=== PATIENT | male | born 1985 | race American Indian/Alaskan Native ===

== ENCOUNTER 2016-09-23 09:20 | Emergency (ER) | payer MEDICAID ==
[2016-09-23 09:51] LABS: Basophils % (Auto) 0.6 % (0.0-1.8); Eosinophils % (Auto) 1.7 % (0.0-4.3); Hematocrit 41.7 % (35.5-45.6); Hemoglobin 14.3 gm/dl (11.8-15.2); Mean Corpuscular HGB Conc 34 % (32-34); Mean Corpuscular Hemoglobin 31 pg (28-32); Mean Corpuscular Volume 89 fl (84-94); Platelet Count 303 K/mm3 (140-440); Red Blood Count 4.66 M/mm3 (3.65-5.03); Red Cell Distribution Width 12.7 % (13.2-15.2); White Blood Count 5.2 K/mm3 (4.5-11.0)
[2016-09-23 10:01] LABS: Anion Gap 18 mmol/L; BUN/Creatinine Ratio 6.25; Blood Urea Nitrogen 5 mg/dL (9-20); Calcium 9.3 mg/dL (8.4-10.2); Carbon Dioxide 22 mmol/L (22-30); Chloride 103.1 mmol/L (98-107); Glucose 97 mg/dL (75-100); Potassium 3.8 mmol/L (3.6-5.0); Sodium 139 mmol/L (137-145)
[2016-09-23] MEDS ORDERED: PEPCID PO ONE (11:20)
[2016-09-23] MEDS ORDERED: MOTRIN PO ONE (11:20)
--- NOTE | 2016-09-23 11:45 | Emergency Department Report ---
ED Headache HPI - General Chief Complaint: Pain General Stated Complaint: FEELING SICK Time Seen by Provider: 09/23/16 11:07 - History of Present Illness Initial Comments: 31-year-old male past medical history schizophrenia, smoker, substance abuse presents with complaint of 10 years of lower back pain and 10 years of headache. Patient is from [place] [facility]. States that he has mild headache. On exam patient is calm awake alert and oriented 3 not in acute distress. Denies any homicidal or suicidal ideation or any hallucinations at this time. States that he has mild left-sided headache. Denies any photo or phonophobia denies any fever or chills. States he has not been taking any medicines for the headache. Denies any recent trauma to head or lower back. Denies any recent falls. Denies any paresthesias no saddle paresthesias bladder or bowel incontinence reported. Patient is fully ambulatory and able to walk inside examination room without any difficulty during my exam. Denies any earache sinus congestion or sore throat. Allergies/Adverse Reactions: Allergies No Known Allergies Allergy (Unverified 09/23/16 09:24) Home Medications: Ambulatory Orders Fluticasone [Flonase] 1 spray NS QDAY #1 bottle 09/23/16 Loratadine [Claritin] 10 mg PO DAILY PRN #30 tablet 09/23/16 Naproxen [Naprosyn TAB] 500 mg PO BID PRN #25 tablet 09/23/16 ED Review of Systems ROS: Stated complaint: FEELING SICK Other details as noted in HPI Constitutional: denies: chills, fever Eyes: denies: eye pain, eye discharge, vision change ENT: denies: ear pain, throat pain Respiratory: denies: cough, shortness of breath, wheezing Cardiovascular: denies: chest pain, palpitations Endocrine: no symptoms reported Gastrointestinal: denies: abdominal pain, nausea, diarrhea Genitourinary: denies: urgency, dysuria Musculoskeletal: back pain (states he has had lower back pain for 10 years). denies: joint swelling, arthralgia Skin: denies: rash, lesions Neurological: headache (states he has had headache for 10 years). denies: weakness, paresthesias Psychiatric: denies: anxiety, depression Hematological/Lymphatic: denies: easy bleeding, easy bruising ED Past Medical Hx - Past Medical History Previous Medical History?: Yes Hx Psychiatric Treatment: Yes (Amandaphrenia) - Surgical History Past Surgical History?: No - Social History Smoking Status: Current Every Day Smoker Substance Use Type: Alcohol - Medications Home Medications: Home Medications Medication Instructions Recorded Confirmed Last Taken Type Fluticasone [Flonase] 1 spray NS QDAY #1 bottle 09/23/16 Unknown Rx Loratadine [Claritin] 10 mg PO DAILY PRN #30 tablet 09/23/16 Unknown Rx Naproxen [Naprosyn TAB] 500 mg PO BID PRN #25 tablet 09/23/16 Unknown Rx ED Physical Exam - General Limitations: No Limitations General appearance: alert, in no apparent distress - Head Head exam: Present: atraumatic, normocephalic - Eye Eye exam: Present: normal appearance, PERRL, EOMI - ENT ENT exam: Present: mucous membranes moist - Neck Neck exam: Present: normal inspection, full ROM (neck flexion and extension fully intact) - Respiratory Respiratory exam: Present: normal lung sounds bilaterally. Absent: respiratory distress - Cardiovascular Cardiovascular Exam: Present: regular rate, normal rhythm. Absent: systolic murmur, diastolic murmur, rubs, gallop - GI/Abdominal GI/Abdominal exam: Present: soft, normal bowel sounds - Rectal Rectal exam: Present: deferred - Extremities Exam Extremities exam: Present: normal inspection, full ROM (range of motion of arms and legs fully intact strength 5 out of 5 all extremities distal deep tendon reflexes are intact) - Back Exam Back exam: Present: normal inspection, full ROM - Neurological Exam Neurological exam: Present: alert, oriented X3, CN II-XII intact, normal gait - Expanded Neurological Exam Expanded Patient oriented to: Present: person, place, time Cranial nerves: EOM's Intact: Normal, Facial Sensation: Normal Cerebellar function: Finger to Nose: Normal, Heel to Carter: Normal, Romberg: Normal Sensory exam: Upper Extremity Light Touch: Normal, Upper Extremity Pin Prick: Normal, Lower Extremity Light Touch: Normal, Lower Extremity Pin Prick: Normal Motor strength exam: RUE: 5, LUE: 5, RLE: 5, LLE: 5 DTR: bicep (R): 3+, bicep (L): 3+, tricep (R): 3+, tricep (L): 3+, knee (R): 3+ , knee (L): 3+, ankle (R): 3+, ankle (L): 3+ Best Eye Response ([place]): (4) open spontaneously Best Motor Response ([place]): (6) obeys commands Best Verbal Response (Deann): (5) oriented Deann Total: 15 - Psychiatric Psychiatric exam: Present: normal affect, normal mood - Skin Skin exam: Present: warm, dry, intact, normal color. Absent: rash ED Course Vital Signs 09/23/16 09/23/16 09:24 11:57 Temperature 98 F 98.5 F Pulse Rate 90 66 Respiratory 16 18 Rate Blood Pressure 124/80 [Right] O2 Sat by Pulse 100 99 Oximetry ED Medical Decision Making - Lab Data Result diagrams: 09/23/16 09:31 09/23/16 09:31 - Medical Decision Making a/p: chronic headache, chronic lower back pain 1- labs within normal limits, head CT shows no acute intracranial process. Some indication of sinus opacification, I will refer patient to ENT 2- patient experienced significant relief of headache with Tylenol and Motrin. States headache is minimal. On clinical exam has no cranial nerve deficits awake alert and oriented 3 fully lucid, ambulatory. Strength 5 at 5 all extremities bilaterally. Deep tendon reflexes are intact bilaterally. No overt signs of clinical neurological deficits on exam 3- as patient has complaints that are chronic and have been ongoing for 10 years and states that he has not had outpatient follow-up I referred patient to primary care, outpatient neurology for chronic headache and ENT for sinus opacification. I informed patient of findings. I encouraged him to follow up as an outpatient Critical care attestation.: If time is entered above; I have spent that time in minutes in the direct care of this critically ill patient, excluding procedure time. ED Disposition Clinical Impression: Chronic headache Qualifiers: Headache type: tension-type Intractability: not intractable Qualified Code(s): G44.229 - Chronic tension-type headache, not intractable Chronic low back pain Qualifiers: Back pain laterality: bilateral Sciatica presence: without sciatica Qualified Code(s): M54.5 - Low back pain Disposition: DC-01 TO HOME OR SELFCARE Is pt being admited?: No Does the pt Need Aspirin: No Condition: Stable Instructions: Tension Headache (ED), Chronic Back Pain (ED) Prescriptions: Fluticasone [Flonase] 1 spray NS QDAY #1 bottle Loratadine [Claritin] 10 mg PO DAILY PRN #30 tablet PRN Reason: Congestion Naproxen [Naprosyn TAB] 500 mg PO BID PRN #25 tablet PRN Reason: Pain Referrals: [facility] [Outside] - 3-5 Days [facility] [Outside] - 3-5 Days SULEMA HERNANDEZ MD [Staff Physician] - 3-5 Days ENVILLE VITAL MD [Staff Physician] - 3-5 Days [facility]Provider Group[facility] - 3-5 Days ENT [facility] [Provider Group] - 3-5 Days BLANCA CABELLO MD [Staff Physician] - 3-5 Days Forms: Work/School Release Form(ED) Time of Disposition: 12:52
[2016-09-23] MEDS ORDERED: TYLENOL PO ONE (11:53)
--- NOTE | 2016-09-23 12:52 | Cat Scan Report ---
CT scan of head without contrast: History: Worsening headache. Findings: Ventricles are normal in size and midline in location. No evidence of acute ischemia, hemorrhage or mass. No extra-axial fluid collection. Normal brainstem and cerebellum. There is opacification noted of the right and left maxillary sinus. There is a retention cyst measuring 2 cm in diameter noted in the right maxillary sinus. Impression: No acute intracranial abnormality. Sinus disease.
[2016-09-23 13:08] VITALS: BP 119/77
== END 2016-09-23 13:08 | disposition home or self-care (01) ==
LOC: ED 09:20
DX: G89.29 Other chronic pain (principal); M54.5 Low back pain; R51 Headache; F17.210 Nicotine dependence, cigarettes, uncomplicated; F20.9 Schizophrenia, unspecified
CPT/HCPCS: 36415; 70450; 80048; 82550; 85025; 99284

== ENCOUNTER 2016-11-17 04:27 | Emergency (ER) | payer MEDICARE ==
[2016-11-17 04:43] VITALS: BP 106/74
[2016-11-17 05:27] LABS: Basophils % (Auto) 0.8 % (0.0-1.8); Eosinophils % (Auto) 1.6 % (0.0-4.3); Hematocrit 39.7 % (35.5-45.6); Hemoglobin 13.7 gm/dl (11.8-15.2); Mean Corpuscular HGB Conc 35 % (32-34); Mean Corpuscular Hemoglobin 32 pg (28-32); Mean Corpuscular Volume 92 fl (84-94); Platelet Count 293 K/mm3 (140-440); Red Blood Count 4.34 M/mm3 (3.65-5.03); Red Cell Distribution Width 12.5 % (13.2-15.2); White Blood Count 9.4 K/mm3 (4.5-11.0)
[2016-11-17 05:46] LABS: Anion Gap 18 mmol/L; BUN/Creatinine Ratio 14.44; Blood Urea Nitrogen 13 mg/dL (9-20); Calcium 8.8 mg/dL (8.4-10.2); Carbon Dioxide 24 mmol/L (22-30); Chloride 101.5 mmol/L (98-107); Glucose 86 mg/dL (75-100); Potassium 3.5 mmol/L (3.6-5.0); Sodium 140 mmol/L (137-145)
[2016-11-17 06:40] LABS: Urine Drugs of Abuse Note Disclamer
[2016-11-17 06:52] LABS: Bilirubin,Urine NEG (Negative); Blood,Urine NEG (Negative); Ketones,Urine NEG (Negative); Leukocyte Esterase,Urine NEG (Negative); Mucus,Urine FEW /HPF; Nitrite,Urine NEG (Negative); Protein,Urine <15 mg/dL mg/dL (Negative); Urobilinogen,Urine < 2.0 mg/dL (<2.0); WBC,Urine < 1.0 /HPF (0.0-6.0)
--- NOTE | 2016-11-17 08:23 | Emergency Department Report ---
ED Medical Clearance [facility] - General Chief complaint: Psych Stated complaint: IMELDA SHAW Time Seen by Provider: 11/17/16 08:21 Source: patient Mode of arrival: Ambulatory - History of Present Illness Initial comments: Patient states he just "wants to get well". He states he has a history of schizophrenia. He placed B compliant with his medicines but does not know the name. He went to [facility] this a.[facility] I am told by the [facility] counselor that he has been cleared for a voluntary admission pending medical clearance. Furthermore he does not need a psychiatric evaluation here. Patient states that he does hear voices that tell him he has done things wrong. However he is had no command hallucinations. He has no intent to harm himself or others. He does have a problem with substance abuse. He is not terribly interested in providing me any detailed history. MD Complaint: medical clearance request -: year(s) Alledged Intoxication: No Compliant with Home Medications: Yes Traumatic Symptoms: denies traumatic injury Treatments Prior to Arrival: none Home medications: Previous Rx's Medication Instructions Recorded Last Taken Type Fluticasone [Flonase] 1 spray NS QDAY #1 bottle 09/23/16 Unknown Rx Loratadine [Claritin] 10 mg PO DAILY PRN #30 tablet 09/23/16 Unknown Rx Naproxen [Naprosyn TAB] 500 mg PO BID PRN #25 tablet 09/23/16 Unknown Rx Allergies/Adverse reactions: Allergies Allergy/AdvReac Type Severity Reaction Status Date / Time No Known Allergies Allergy Unverified 09/23/16 09:24 ED Review of Systems ROS: Stated complaint: EVAL Other details as noted in HPI Constitutional: denies: chills, fever Eyes: denies: eye pain, eye discharge, vision change ENT: denies: ear pain, throat pain Respiratory: denies: cough, shortness of breath, wheezing Cardiovascular: denies: chest pain, palpitations Endocrine: no symptoms reported Gastrointestinal: denies: abdominal pain, nausea, diarrhea Genitourinary: denies: urgency, dysuria Musculoskeletal: denies: back pain, joint swelling, arthralgia Skin: denies: rash, lesions Neurological: denies: headache, weakness, paresthesias Psychiatric: auditory hallucinations. denies: anxiety, depression, visual hallucinations, homicidal thoughts, suicidal thoughts Hematological/Lymphatic: denies: easy bleeding, easy bruising ED Past Medical Hx - Past Medical History Previous Medical History?: Yes Hx Psychiatric Treatment: Yes (Schzophrenia) - Surgical History Past Surgical History?: No - Social History Smoking Status: Current Every Day Smoker Substance Use Type: Alcohol, Heroin, Marijuana, Other - Medications Home Medications: Home Medications Medication Instructions Recorded Confirmed Last Taken Type Fluticasone [Flonase] 1 spray NS QDAY #1 bottle 09/23/16 Unknown Rx Loratadine [Claritin] 10 mg PO DAILY PRN #30 tablet 09/23/16 Unknown Rx Naproxen [Naprosyn TAB] 500 mg PO BID PRN #25 tablet 09/23/16 Unknown Rx ED Physical Exam - General Limitations: No Limitations General appearance: alert, in no apparent distress - Head Head exam: Present: atraumatic, normocephalic - Eye Eye exam: Present: normal appearance - ENT ENT exam: Present: normal exam, mucous membranes moist - Neck Neck exam: Present: normal inspection - Respiratory Respiratory exam: Present: normal lung sounds bilaterally. Absent: respiratory distress - Cardiovascular Cardiovascular Exam: Present: regular rate, normal rhythm. Absent: systolic murmur, diastolic murmur, rubs, gallop - GI/Abdominal GI/Abdominal exam: Present: soft, normal bowel sounds. Absent: distended, tenderness, guarding, rebound, rigid - Rectal Rectal exam: Present: deferred - Extremities Exam Extremities exam: Present: normal inspection - Back Exam Back exam: Present: normal inspection - Neurological Exam Neurological exam: Present: alert, oriented X3, CN II-XII intact. Absent: motor sensory deficit - Psychiatric Psychiatric exam: Present: normal affect, normal mood - Skin Skin exam: Present: warm, dry, intact, normal color. Absent: rash ED Course Vital Signs 11/17/16 04:38 Temperature 97.4 F L Pulse Rate 81 Respiratory 18 Rate Blood Pressure 106/74 O2 Sat by Pulse 99 Oximetry - Reevaluation(s) Reevaluation #1: 11/17/16 08:40 Mental Health state send back to [facility]. ED Medical Decision Making - Lab Data Result diagrams: 11/17/16 04:52 11/17/16 04:52 Laboratory Results - last 24 hr 11/17/16 11/17/16 11/17/16 04:52 04:52 04:52 WBC 9.4 RBC 4.34 Hgb 13.7 Hct 39.7 MCV 92 MCH 32 MCHC 35 H RDW 12.5 L Plt Count 293 Lymph % (Auto) 42.9 H [place] % (Auto) 6.6 Eos % (Auto) 1.6 Baso % (Auto) 0.8 Lymph # 4.0 Canadian # 0.6 Eos # 0.1 Baso # 0.1 Seg Neutrophils % 48.1 Seg Neutrophils # 4.5 Sodium 140 Potassium 3.5 L Chloride 101.5 Carbon Dioxide 24 Anion Gap 18 BUN 13 Creatinine 0.9 Estimated GFR > 60 BUN/Creatinine Ratio 14.44 Glucose 86 Calcium 8.8 Urine Color Urine Turbidity Urine pH Ur Specific [place] Urine Protein Urine Glucose (UA) Urine Ketones Urine Blood Urine Nitrite Urine Bilirubin Urine Urobilinogen Ur Leukocyte Esterase Urine WBC (Auto) Urine RBC (Auto) Urine Mucus Urine Opiates Screen Urine Methadone Screen Ur Barbiturates Screen Ur Phencyclidine Scrn Ur Amphetamines Screen U Benzodiazepines Scrn Urine Cocaine Screen U Marijuana (THC) Screen Drugs of Abuse Note Plasma/Serum Alcohol < 0.01 11/17/16 11/17/16 06:31 06:31 WBC RBC Hgb Hct MCV MCH MCHC RDW Plt Count Lymph % (Auto) Canadian % (Auto) Eos % (Auto) Baso % (Auto) Lymph # [place] # Eos # Baso # Seg Neutrophils % Seg Neutrophils # Sodium Potassium Chloride Carbon Dioxide Anion Gap BUN Creatinine Estimated GFR BUN/Creatinine Ratio Glucose Calcium Urine Color Straw Urine Turbidity Clear Urine pH 6.0 Ur Specific [place] 1.006 Urine Protein <15 mg/dl Urine Glucose (UA) Neg Urine Ketones Neg Urine Blood Neg Urine Nitrite Neg Urine Bilirubin Neg Urine Urobilinogen < 2.0 Ur Leukocyte Esterase Neg Urine WBC (Auto) < 1.0 Urine RBC (Auto) 2.0 Urine Mucus Few Urine Opiates Screen Presumptive negative Urine Methadone Screen Presumptive negative Ur Barbiturates Screen Presumptive negative Ur Phencyclidine Scrn Presumptive negative Ur Amphetamines Screen Presumptive negative U Benzodiazepines Scrn Presumptive negative Urine Cocaine Screen Presumptive negative U Marijuana (THC) Screen Presumptive positive Drugs of Abuse Note Disclamer Plasma/Serum Alcohol ED Disposition Clinical Impression: Medical clearance for psychiatric admission Schizophrenia Qualifiers: Schizophrenia type: unspecified Qualified Code(s): F20.9 - Schizophrenia, unspecified Disposition: DC-01 TO HOME OR SELFCARE Is pt being admited?: No Does the pt Need Aspirin: No Condition: Stable Instructions: Schizophrenia (ED) Additional Instructions: Return any acute change or problem. There are medically clear for voluntary admission to [facility]. Referrals: PRIMARY CARE,MD [Primary Care Provider] - 3-5 Days Time of Disposition: 08:44
== END 2016-11-17 09:58 | disposition home or self-care (01) ==
LOC: ED 04:27
DX: F20.9 Schizophrenia, unspecified (principal); F17.200 Nicotine dependence, unspecified, uncomplicated; F12.10 Cannabis abuse, uncomplicated
CPT/HCPCS: 36415; 80048; 80307; 81001; 85025; 99283; G0480; 80320

== ENCOUNTER 2018-12-29 11:42 | Emergency (ER) | payer MEDICARE ==
[2018-12-29 12:34] LABS: Bilirubin,Urine NEG (Negative); Blood,Urine NEG (Negative); Color,Urine Yellow (Yellow); Mucus,Urine FEW /HPF; Urobilinogen,Urine < 2.0 mg/dL (<2.0)
[2018-12-29 12:41] LABS: Basophils # (Auto) 0.1 K/mm3 (0.0-0.1); Basophils % (Auto) 1.1 % (0.0-1.8); Eosinophils # (Auto) 0.2 K/mm3 (0.0-0.4); Hematocrit 40.7 % (35.5-45.6); Hemoglobin 13.8 gm/dl (11.8-15.2); Lymphocytes # (Auto) 2.9 K/mm3 (1.2-5.4); Lymphocytes % (Auto) 30.5 % (13.4-35.0); Mean Corpuscular HGB Conc 34 % (32-34); Mean Corpuscular Volume 89 fl (84-94); Monocytes # (Auto) 0.5 K/mm3 (0.0-0.8); Monocytes % (Auto) 5.7 % (0.0-7.3); Platelet Count 348 K/mm3 (140-440); Red Blood Count 4.58 M/mm3 (3.65-5.03); Red Cell Distribution Width 13.5 % (13.2-15.2)
[2018-12-29 12:47] LABS: Amphetamine Screen,Urine PRESUMPTIVE NEGATIVE; Benzodiazepines Screen,Urine PRESUMPTIVE NEGATIVE; Cocaine Screen,Urine PRESUMPTIVE NEGATIVE; Methadone Screen,Urine PRESUMPTIVE NEGATIVE; Opiate Screen,Urine PRESUMPTIVE NEGATIVE
--- NOTE | 2018-12-29 12:48 | Emergency Department Report ---
ED Medical Clearance HPI - General Chief complaint: Psych Stated complaint: IMELDA SHAW Time Seen by Provider: 12/29/18 12:10 Source: patient, EMS Mode of arrival: Ambulatory - History of Present Illness Initial comments: 33-year-old male with history of schizophrenia presents to ED for medical clearance. Patient went to [facility] for mental health treatment. Patient reported at 4 AM, he took approximately 8 of his psych medications and a suicide attempt, patient is unsure which pills he took. He reports that he vomited afterward, and noticed that some of the pills came up. Patient sent to the ED from [facility] for medical clearance. Patient reports auditory hallucinations that are telling him things such as he will never make any money. Patient also reports homicidal ideations, however has no specific person in mind. Patient has no complaints at this time. He is currently listening to music on his cell phone. He is requesting something to eat. MD Complaint: medical clearance request -: hour(s) (8) Reason for Medical Clearance: other (reported overdose) Associated Symptoms: nausea/vomiting. denies: chest pain, shortness of breath, palpitations, headaches Home medications: Previous Rx's Medication Instructions Recorded Last Taken Type Fluticasone [Flonase] 1 spray NS QDAY #1 bottle 09/23/16 Unknown Rx Loratadine [Claritin] 10 mg PO DAILY PRN #30 tablet 09/23/16 Unknown Rx Naproxen [Naprosyn TAB] 500 mg PO BID PRN #25 tablet 09/23/16 Unknown Rx Allergies/Adverse reactions: Allergies Allergy/AdvReac Type Severity Reaction Status Date / Time No Known Allergies Allergy Unverified 09/23/16 09:24 ED Review of Systems ROS: Stated complaint: IMELDA EVAL Other details as noted in HPI Comment: All other systems reviewed and negative Gastrointestinal: nausea, vomiting. denies: abdominal pain Neurological: denies: headache Psychiatric: auditory hallucinations, homicidal thoughts, suicidal thoughts ED Past Medical Hx - Past Medical History Hx Psychiatric Treatment: Yes (Schzophrenia) - Social History Smoking Status: Current Every Day Smoker Substance Use Type: Alcohol, Marijuana - Medications Home Medications: Home Medications Medication Instructions Recorded Confirmed Last Taken Type Fluticasone [Flonase] 1 spray NS QDAY #1 bottle 09/23/16 Unknown Rx Loratadine [Claritin] 10 mg PO DAILY PRN #30 tablet 09/23/16 Unknown Rx Naproxen [Naprosyn TAB] 500 mg PO BID PRN #25 tablet 09/23/16 Unknown Rx ED Physical Exam - General Limitations: No Limitations General appearance: alert, in no apparent distress - Head Head exam: Present: atraumatic, normocephalic - Eye Eye exam: Present: normal appearance, PERRL, EOMI - ENT ENT exam: Present: mucous membranes moist - Neck Neck exam: Present: normal inspection - Respiratory Respiratory exam: Present: normal lung sounds bilaterally. Absent: respiratory distress - Cardiovascular Cardiovascular Exam: Present: regular rate, normal rhythm - GI/Abdominal GI/Abdominal exam: Present: soft. Absent: distended, tenderness - Extremities Exam Extremities exam: Present: normal inspection, full ROM - Neurological Exam Neurological exam: Present: alert, oriented X3, CN II-XII intact. Absent: motor sensory deficit - Psychiatric Psychiatric exam: Present: normal affect, normal mood - Skin Skin exam: Present: warm, dry, intact, normal color ED Course Vital Signs 12/29/18 12:01 Temperature 97.8 F Pulse Rate 82 Respiratory 18 Rate Blood Pressure 110/66 O2 Sat by Pulse 98 Oximetry ED Medical Decision Making - Lab Data Result diagrams: 12/29/18 12:27 12/29/18 12:27 - EKG Data -: EKG Interpreted by Ri EKG shows normal: sinus rhythm, axis, intervals, QRS complexes, ST-T waves Rate: normal - EKG Data Interpretation: no acute changes - Medical Decision Making 33-year-old male with reported ingestion at 4 AM and a suicide attempt. Patient unable to state the names of the medications that he took. Patient reports after taking them he did vomit up a few of the pills. This was 9 hours ago. Patient A&O 3, no neuro deficits, vital signs are normal, EKG is normal, labs are normal. At this point patient is medically clear. Will discharge back to [place] facility. ED Disposition Clinical Impression: Medical clearance for psychiatric admission Disposition: - TO HOME OR SELFCARE Is pt being admited?: No Condition: Stable Instructions: Medical Clearance for Psychiatric Care (ED) Referrals: [facility] [Outside] - 3-[address] [facility] [Provider Group] - 3-5 Days Time of Disposition: 13:08
[2018-12-29 12:52] LABS: BUN/Creatinine Ratio 10; Blood Urea Nitrogen 9 mg/dL (9-20); Calcium 9.2 mg/dL (8.4-10.2); Hemolysis Index 3
[2018-12-29 12:54] LABS: Alanine Aminotransferase 23 units/L (7-56); Albumin 4.4 g/dL (3.9-5)
[2018-12-29 12:56] LABS: Bilirubin,Direct < 0.2 mg/dL (0-0.2)
[2018-12-29 12:59] LABS: Cannabinoid Screen,Urine PRESUMPTIVE POSITIVE
[2018-12-29 13:29] VITALS: BP 112/76
== END 2018-12-29 13:32 | disposition home or self-care (01) ==
LOC: ED 11:42
DX: F20.9 Schizophrenia, unspecified (principal); R11.2 Nausea with vomiting, unspecified; F12.10 Cannabis abuse, uncomplicated; F17.200 Nicotine dependence, unspecified, uncomplicated; Z79.899 Other long term (current) drug therapy
CPT/HCPCS: 36415; 80048; 80076; 80307; 80320; 81001; 85025; 93005; 93010; 99285; G0480

== ENCOUNTER 2019-06-15 21:07 | Emergency (ER) | payer MEDICARE ==
[2019-06-15 22:03] LABS: Basophils # (Auto) 0.1 K/mm3 (0.0-0.1); Basophils % (Auto) 1.2 % (0.0-1.8); Eosinophils # (Auto) 0.1 K/mm3 (0.0-0.4); Eosinophils % (Auto) 1.6 % (0.0-4.3); Hematocrit 40.5 % (35.5-45.6); Hemoglobin 13.8 gm/dl (11.8-15.2); Lymphocytes # (Auto) 2.5 K/mm3 (1.2-5.4); Lymphocytes % (Auto) 34.6 % (13.4-35.0); Mean Corpuscular HGB Conc 34 % (32-34); Mean Corpuscular Volume 90 fl (84-94); Monocytes # (Auto) 0.8 K/mm3 (0.0-0.8); Monocytes % (Auto) 10.7 % (0.0-7.3); Platelet Count 418 K/mm3 (140-440); Red Cell Distribution Width 13.2 % (13.2-15.2)
[2019-06-15 22:12] LABS: BUN/Creatinine Ratio 11; Blood Urea Nitrogen 11 mg/dL (9-20); Calcium 9.2 mg/dL (8.4-10.2); Hemolysis Index 9
--- NOTE | 2019-06-15 22:18 | Emergency Department Report ---
ED Psych HPI - General Chief Complaint: Psych Stated Complaint: SUICIDAL Time Seen by Provider: 06/15/19 21:28 Source: patient, EMS Mode of arrival: Ambulatory Limitations: No Limitations - History of Present Illness Initial Comments: 34-year-old male with a past medical history of schizophrenia and drug abuse presents to the hospital complaining of psychosis, suicidal, homicidal ideation for at least 1 month. Patient states the voices are telling him to kill himself. Denies visual hallucinations symptoms worsening and patient admits to recent marijuana and ecstasy use 30 minutes prior to arrival. Patient states he is supposed to receive invega shots twice a month and has not had any shots in at least 1 month because he missed his appointments with the [facility]. Patient denies any physical complaints. History of suicide attempt via overdose and wrist cutting in the past. No plan reported today - Related Data Home Medications Medication Instructions Recorded Confirmed Last Taken Paliperidone Palmitate [Invega 156 mg IM QMONTH 06/15/19 06/15/19 Unknown Sustenna] Previous Rx's Medication Instructions Recorded Last Taken Type Fluticasone [Flonase] 1 spray NS QDAY #1 bottle 09/23/16 Unknown Rx Loratadine (Nf) [Claritin] 10 mg PO DAILY PRN #30 tablet 09/23/16 Unknown Rx Allergies Allergy/AdvReac Type Severity Reaction Status Date / Time No Known Allergies Allergy Unverified 09/23/16 09:24 ED Review of Systems ROS: Stated complaint: SUICIDAL Other details as noted in HPI Comment: All other systems reviewed and negative ED Past Medical Hx - Past Medical History Previous Medical History?: Yes Hx Psychiatric Treatment: Yes (Schizophrenia) - Surgical History Past Surgical History?: Yes Additional Surgical History: Ear surgery as a child - Social History Smoking Status: Current Every Day Smoker Substance Use Type: Marijuana, Other - Medications Home Medications: Home Medications Medication Instructions Recorded Confirmed Last Taken Type Fluticasone [Flonase] 1 spray NS QDAY #1 bottle 09/23/16 06/15/19 Unknown Rx Loratadine (Nf) [Claritin] 10 mg PO DAILY PRN #30 tablet 09/23/16 06/15/19 Unknown Rx Paliperidone Palmitate [Invega 156 mg IM QMONTH 06/15/19 06/15/19 Unknown History Sustenna] ED Physical Exam - General Limitations: No Limitations - Other Other exam information: General: No acute distress Head: Atraumatic Eyes: normal appearance ENT: Moist mucous membranes Neck: Normal appearance, no midline tenderness Chest: Clear to auscultation bilaterally CV: Regular rate and rhythm Abdomen: Soft, normal bowel sounds, nontender, nondistended, no rebound or guarding Back: Normal inspection Extremity: Normal inspection, full range of motion Neuro: Alert O x 3, no facial asymmetry, speech clear, no gross motor sensory deficit Psych: Appropriate behavior Skin: No rash ED Course Vital Signs 06/15/19 06/15/19 06/15/19 21:20 22:00 22:05 Temperature 98.7 F 98.7 F Pulse Rate 93 H 93 H Respiratory 18 20 18 Rate Blood Pressure 117/72 117/72 [Right] O2 Sat by Pulse 96 99 96 Oximetry - Reevaluation(s) Reevaluation #1: 06/16/19 02:05 ua collection pending ED Medical Decision Making - Lab Data Result diagrams: 06/15/19 21:30 06/15/19 21:30 - Differential Diagnosis Psychosis, schizophrenia, HI, SI, substance abuse Critical Care Time: No Critical care attestation.: If time is entered above; I have spent that time in minutes in the direct care of this critically ill patient, excluding procedure time. ED Disposition Condition: Stable
[2019-06-16 04:50] LABS: Bilirubin,Urine NEG (Negative); Color,Urine Yellow (Yellow)
[2019-06-16 04:51] LABS: Blood,Urine NEG (Negative); Mucus,Urine 2+ /HPF; Protein,Urine <15 mg/dL mg/dL (Negative); Sperm,Urine 1+ /HPF (NP); Urobilinogen,Urine < 2.0 mg/dL (<2.0)
[2019-06-16 04:57] LABS: Benzodiazepines Screen,Urine PRESUMPTIVE NEGATIVE; Cocaine Screen,Urine PRESUMPTIVE NEGATIVE; Methadone Screen,Urine PRESUMPTIVE NEGATIVE; Opiate Screen,Urine PRESUMPTIVE NEGATIVE
[2019-06-16 05:09] LABS: Amphetamine Screen,Urine PRESUMPTIVE POSITIVE; Cannabinoid Screen,Urine PRESUMPTIVE POSITIVE
[2019-06-16 16:40] LABS: Alanine Aminotransferase 21 units/L (7-56); Albumin 4.2 g/dL (3.9-5); BUN/Creatinine Ratio 11; Blood Urea Nitrogen 10 mg/dL (9-20); Calcium 9.3 mg/dL (8.4-10.2); Hemolysis Index 24
--- NOTE | 2019-06-17 11:02 | Consultation ---
History of Present Illness - Reason for Consult Consult date: 06/17/19 Reason for consult: Psychiatric assessment - History of Present Psychiatric Illness Mr. Guerrero is a 34-year-old -[place] male, he is aaox4 , he is dressed appropriate for the occasion he is able to make his needs known. When asked why he was here the patient stated, "I called the police because I have felt that I was suicidal with no plan". 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 The patient stated that he was told that he used up all his psychiatric days so he did not have any insurance and [facility] was his only option. The patient stated, "I would not go to [facility]". The pa nilda denies suicidal thoughts and homicidal thoughts at this time and stated, "I would not hurt myself I love life". The patient reports that he hears voices all the time telling him to give up on life. He reports his depression as a 6 out of 10. The patient stated that he has a history of schizo and has been taking in invega but he has not taken his medication in the last month because his [facility] not [facility] it to him. He reports that he uses marijuana and ecstasy daily. Spoke with the patient's mother who stated, that the patient has been prescribed invega shot which she has given to the penitentiary and that he also takes Risperdal unknown dose. The patient family is currently calling [facility] to get all the medications that he takes. The patient can be discharged when Invega shot is given. The patient family will bring the invega from home for administration. PAST PSYCHIATRIC HISTORY: Diagnoses: Schizophrenia Suicide attempts or Self-harm behavior yes Prior psychiatric hospitalizations yes Substance Abuse history: Marijuana/ecstasy Previous psychiatric medications tried: In [place], Zyprexa Outpatient treatment: No PAST MEDICAL HISTORY: Family Psychiatric History Uncle SOCIAL HISTORY Marital Status: Single Living Arrangements: assisted Employment Status: Unemployed Access to guns/weapons: Denies Education: Ninth History of Abuse: No Legal History: no ROS: Constitutional: Negative for weight loss ENT: Negative for stridor Respiratory: Negative for cough or hemoptysis All other systems reviewed and are negative MENTAL STATUS General Appearance and Behavior: age appropriate, good eye contact, cooperative with questioning and polite Cooperation: Cooperative Psychomotor Behavior: within normal limits Mood: OK Affect and affective range: Congruent with stated mood Thought Process: Fluent/Logical and Goal-directed Thought Content: Within reality Speech: Normal volume and Regular rate and rhythm Intellectual Functioning Average Suicidal Ideation: Denies SI Homicidal Ideation: Denies HI Impulse Control: intact Insight and Judgment: normal insight and judgment Memory: Normal Attention: Normal Orientation: alert and oriented RECOMMENDATIONS MEDICATIONS: Start invega to 234 mg x 1 dose-mother will bring from home Start Risperdal 3 mg p.o. twice daily Risks, benefits and alternatives of medications discussed with the patient, questions answered and consent obtained from patient. PSYCHOTHERAPY: Supportive psychotherapy provided MEDICAL: Per primary team DELIRIUM PRECAUTIONS: Please re-orient patient frequently, keep lights on during the day, and minimize benzodiazepines and opiates as these medications could worsen patient's confusion. 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 primary team; no indication for acute inpatient psychiatric hospitalization at this time LEGAL STATUS: d/c 1013 FOLLOW-UP: sign-off Medications and Allergies Allergies Allergy/AdvReac Type Severity Reaction Status Date / Time No Known Allergies Allergy Unverified 09/23/16 09:24 Home Medications Medication Instructions Recorded Confirmed Last Taken Type Fluticasone [Flonase] 1 spray NS QDAY #1 bottle 09/23/16 06/15/19 Unknown Rx Loratadine (Nf) [Claritin] 10 mg PO DAILY PRN #30 tablet 09/23/16 06/15/19 Unknown Rx Paliperidone Palmitate [Invega 156 mg IM QMONTH 06/15/19 06/15/19 Unknown History Sustenna] Mental Status Exam - Vital signs Last Vital Signs Temp 98.9 F 06/17/19 07:43 Pulse 89 06/17/19 07:43 Resp 20 06/17/19 07:43 BP 129/84 06/17/19 07:43 Pulse Ox 97 06/17/19 07:43 Results Result Diagrams: 06/15/19 21:30 06/16/19 16:04 All other labs normal.
[2019-06-17] MEDS ORDERED: PALIPERIDONE PALMITATE 156 MG IM SCH (11:15)
[2019-06-17] MEDS ORDERED: PALIPERIDONE PALMITATE 234 MG IM SCH (12:11)
[2019-06-17 13:57] VITALS: BP 122/86
[2019-06-17] MEDS ORDERED: risperiDONE 1 MG TAB PO SCH (22:00)
[2019-06-17] MEDS ORDERED: BENZTROPINE 0.5 MG TAB PO SCH (22:00)
== END 2019-06-17 15:42 | disposition home or self-care (01) ==
LOC: ED 21:07
DX: R45.851 Suicidal ideations (principal); R45.850 Homicidal ideations; F20.9 Schizophrenia, unspecified; F12.90 Cannabis use, unspecified, uncomplicated; F17.200 Nicotine dependence, unspecified, uncomplicated; Z79.899 Other long term (current) drug therapy; Z98.890 Other specified postprocedural states
CPT/HCPCS: 36415; 80048; 80053; 80307; 80320; 81001; 85025; G0480

== ENCOUNTER 2019-12-18 17:58 | Emergency (ER) | payer MEDICARE ==
[2019-12-18 19:09] LABS: Basophils # (Auto) 0.1 K/mm3 (0.0-0.1); Basophils % (Auto) 0.8 % (0.0-1.8); Eosinophils % (Auto) 0.7 % (0.0-4.3); Hematocrit 42.2 % (35.5-45.6); Hemoglobin 14.3 gm/dl (11.8-15.2); Lymphocytes # (Auto) 1.5 K/mm3 (1.2-5.4); Lymphocytes % (Auto) 22.6 % (13.4-35.0); Mean Corpuscular HGB Conc 34 % (32-34); Mean Corpuscular Volume 91 fl (84-94); Monocytes # (Auto) 0.4 K/mm3 (0.0-0.8); Monocytes % (Auto) 5.7 % (0.0-7.3); Platelet Count 365 K/mm3 (140-440); Red Blood Count 4.63 M/mm3 (3.65-5.03); Red Cell Distribution Width 13.5 % (13.2-15.2)
[2019-12-18 19:20] LABS: BUN/Creatinine Ratio 7; Blood Urea Nitrogen 6 mg/dL (9-20); Calcium 9.5 mg/dL (8.4-10.2); Hemolysis Index 14
--- NOTE | 2019-12-18 22:08 | Emergency Department Report ---
ED Psych HPI - General Chief Complaint: Psych Stated Complaint: MH EVAL Time Seen by Provider: 12/18/19 22:02 Source: patient Mode of arrival: Ambulatory - History of Present Illness Initial Comments: Patient is a 34-year-old female that presents emergency room with complaints of homicidal ideations, suicidal ideation with a plan, hallucinations. Patient states he has suicidal ideations with plan to hang himself or overdose. Patient states he is hearing voices. Patient states the voices are telling to kill himself. Patient states they are telling him to fight people. Patient states he wants to kill everybody. Patient states he is feeling depressed and anxious. Patient states his thoughts are racing. Patient denies recent travel. Patient denies recent international travel. Patient denies exposure to the novel coronavirus. Patient denies sick contacts. Patient denies fever and chills. Patient denies cough. Patient denies diarrhea. Patient denies coming in contact with anybody with symptoms of the novel coronavirus. MD Complaint: suicidal ideation, feels depressed -: Sudden Associated Psychiatric Symptoms: suicidal ideation, homicidal ideation, racing thoughts, auditory hallucinations, visual hallucinations History of same: Yes Quality: constant Improves With: none Worsens With: none Context: not taking psychiatric If Self Harm: admits thoughts of, has plan - Related Data Home Medications Medication Instructions Recorded Confirmed Last Taken Paliperidone Palmitate [Invega 156 mg IM QMONTH 06/15/19 06/15/19 Unknown Sustenna] Previous Rx's Medication Instructions Recorded Last Taken Type Fluticasone [Flonase] 1 spray NS QDAY #1 bottle 09/23/16 Unknown Rx Loratadine (Nf) [Claritin] 10 mg PO DAILY PRN #30 tablet 09/23/16 Unknown Rx RX: Benztropine [Cogentin] 0.5 mg PO BID #60 tablet 06/17/19 Unknown Rx RX: risperiDONE [RisperDAL] 3 mg PO BID #60 tablet 06/17/19 Unknown Rx Allergies Allergy/AdvReac Type Severity Reaction Status Date / Time No Known Allergies Allergy Verified 12/18/19 18:00 ED Review of Systems ROS: Stated complaint: MH EVAL Other details as noted in HPI Constitutional: denies: chills, fever Eyes: denies: eye pain, eye discharge, vision change ENT: denies: ear pain, throat pain Respiratory: denies: cough, shortness of breath, wheezing Cardiovascular: denies: chest pain, palpitations Endocrine: no symptoms reported Gastrointestinal: denies: abdominal pain, nausea, diarrhea Genitourinary: denies: urgency, dysuria Musculoskeletal: denies: back pain, joint swelling, arthralgia Skin: denies: rash, lesions Neurological: denies: headache, weakness, paresthesias Psychiatric: anxiety, depression, auditory hallucinations, visual hallucinations, homicidal thoughts, suicidal thoughts Hematological/Lymphatic: denies: easy bleeding, easy bruising ED Past Medical Hx - Past Medical History Previous Medical History?: Yes Hx Psychiatric Treatment: Yes (Schizophrenia) - Surgical History Past Surgical History?: Yes Additional Surgical History: Ear surgery as a child - Family History Family history: no significant - Social History Smoking Status: Current Every Day Smoker Substance Use Type: None - Medications Home Medications: Home Medications Medication Instructions Recorded Confirmed Last Taken Type Fluticasone [Flonase] 1 spray NS QDAY #1 bottle 09/23/16 06/15/19 Unknown Rx Loratadine (Nf) [Claritin] 10 mg PO DAILY PRN #30 tablet 09/23/16 06/15/19 Unknown Rx Paliperidone Palmitate [Invega 156 mg IM QMONTH 06/15/19 06/15/19 Unknown History Sustenna] RX: Benztropine [Cogentin] 0.5 mg PO BID #60 tablet 06/17/19 Unknown Rx RX: risperiDONE [RisperDAL] 3 mg PO BID #60 tablet 06/17/19 Unknown Rx ED Physical Exam - General Limitations: No Limitations General appearance: alert, in no apparent distress - Head Head exam: Present: atraumatic, normocephalic - Eye Eye exam: Present: normal appearance - ENT ENT exam: Present: mucous membranes moist - Neck Neck exam: Present: normal inspection - Respiratory Respiratory exam: Present: normal lung sounds bilaterally. Absent: respiratory distress - Cardiovascular Cardiovascular Exam: Present: regular rate, normal rhythm. Absent: systolic murmur, diastolic murmur, rubs, gallop - GI/Abdominal GI/Abdominal exam: Present: soft, normal bowel sounds - Rectal Rectal exam: Present: deferred - Extremities Exam Extremities exam: Present: normal inspection - Back Exam Back exam: Present: normal inspection - Neurological Exam Neurological exam: Present: alert, oriented X3 - Psychiatric Psychiatric exam: Present: flat affect, homicidal ideation, suicidal ideation - Expanded Psychiatric Exam Expanded Focused psych exam: Present: pressured speech, internal stimuli, restlessness, flight of ideas, loose associations - Skin Skin exam: Present: warm, dry, intact, normal color. Absent: rash ED Course Vital Signs 12/18/19 18:04 Temperature 98.2 F Pulse Rate 104 H Respiratory 18 Rate Blood Pressure 121/78 O2 Sat by Pulse 95 Oximetry - Reevaluation(s) Reevaluation #1: Patient placed on a 1013 and an ER hold. 12/18/19 22:08 Reevaluation #2: Patient is medically cleared. Patient will remain an ER hold until the patient is cleared by our psychiatry team. Patient's final disposition will come from our psychiatry mental health team. 12/19/19 01:48 ED Medical Decision Making - Lab Data Result diagrams: 12/18/19 18:23 12/18/19 18:23 - Medical Decision Making Patient is a 34-year-old male that presents emergency room with multiple psychiatric complaints. Patient found to have acute psychosis, suicidal ideations and homicidal ideations. Patient placed on a 1013 and an ER hold. Patient had labs done which were essentially unremarkable. Patient is medically cleared. Patient's final disposition will come from our psychiatry team. - Differential Diagnosis Hallucinations, suicidal ideation, homicidal ideation, acute psychosis. Critical care attestation.: If time is entered above; I have spent that time in minutes in the direct care of this critically ill patient, excluding procedure time. ED Disposition Clinical Impression: Acute psychosis, Hallucination, Homicidal ideation, Suicidal ideations Is pt being admited?: No Does the pt Need Aspirin: No Condition: Stable
[2019-12-19] MEDS ORDERED: ZIPRASIDONE MESYLATE 20 MG VIAL IM ONE (00:10)
[2019-12-19 01:09] LABS: Bilirubin,Urine NEG (Negative); Blood,Urine NEG (Negative); Color,Urine Yellow (Yellow); Mucus,Urine 3+ /HPF; Protein,Urine <15 mg/dL mg/dL (Negative); Urobilinogen,Urine < 2.0 mg/dL (<2.0)
[2019-12-19 01:11] LABS: Amphetamine Screen,Urine PRESUMPTIVE NEGATIVE; Benzodiazepines Screen,Urine PRESUMPTIVE NEGATIVE; Cannabinoid Screen,Urine PRESUMPTIVE NEGATIVE; Cocaine Screen,Urine PRESUMPTIVE NEGATIVE; Methadone Screen,Urine PRESUMPTIVE NEGATIVE; Opiate Screen,Urine PRESUMPTIVE NEGATIVE
--- NOTE | 2019-12-19 13:27 | Consultation ---
History of Present Illness - Reason for Consult Consult date: 12/19/19 Reason for consult: SI/HI, hallucinations - History of Present Psychiatric Illness The patient's medical record was reviewed and the patient's progress was discussed with the nursing staff. Adriel Pratt is a 34y/o male patient who presented to the ER for suicidal and homicidal thoughts and hallucinations. During my interview with the patient this morning, he was lying down awake. He is a/o x 3. The patient states "the devil is talking to me. He is telling me to kill people, do drugs and all kinds of stuff." He verbalizes having "racing thoughts and feeling depressed." The patient says, "the voices and all these thoughts, telling me to kill myself and kill people." He then says, "I'm trying to maintain but it's hard." When asking the patient was he suicidal right now, he replies "yea, but I'm trying to fight what it's telling me." He denies having a plan at the moment. He also denies suicide attempts in the past. The patient states he's been admitted "a lot of times" for psych related conditions. He says he has a diagnosis of "schizophrenia." The patient says he normally takes "invega and geodon" but states he's "been off about three months." The patient says he uses "meth, ice, sniffs heroine, and cocaine." PAST PSYCHIATRIC HISTORY Diagnoses: schizophrenia Suicide attempts or Self-harm behavior: Denies Prior psychiatric hospitalizations: "a lot" Substance Abuse history: Meth, Ice, Cocaine, Heroine Previous psychiatric medications tried: Invega, Geodon Outpatient treatment: Not in three months PAST MEDICAL HISTORY: Denies Family Psychiatric History: None reported or documented SOCIAL HISTORY Marital Status: Single Living Arrangements: halfway Employment Status: Disabled Access to guns/weapons: Denies Education: 9th grade History of Abuse: none reported Legal History: none reported REVIEW OF SYSTEMS Constitutional: Negative for weight loss ENT: Negative for stridor Respiratory: Negative for cough or hemoptysis All other systems reviewed and are negative MENTAL STATUS EXAMINATION General Appearance: Dressed appropriately Behavior: calm and cooperative Mood: "depressed" Affect and affective range: congruent with stated mood, restricted Thought Process: illogical Thought Content: hallucinations, racing thoughts Speech: Normal volume, Regular rate and rhythm Suicidal Ideation: Yes Homicidal Ideation: Yes Hallucinations: Auditory Delusions: None elicited Insight and Judgment: Limited Memory/Cognition: Limited Attention: Normal Orientation: Alert, oriented Assessment Schizoaffective Disorder, Bipolar Type PLAN Start Seroquel 25mg po BID Start Trazodone 50mg po qhs Start Depakote DR 125mg po BID Start Vistaril 25mg po BID Geodon 10mg IM q4h prn agitation Sitter: Defer to primary Medical: Per primary Disposition: Recommend acute inpatient psychiatric treatment Will continue to follow. Thank you for this consult. Medications and Allergies Allergies Allergy/AdvReac Type Severity Reaction Status Date / Time No Known Allergies Allergy Verified 12/18/19 18:00 Home Medications Medication Instructions Recorded Confirmed Last Taken Type Fluticasone [Flonase] 1 spray NS QDAY #1 bottle 09/23/16 06/15/19 Unknown Rx Loratadine (Nf) [Claritin] 10 mg PO DAILY PRN #30 tablet 09/23/16 06/15/19 Unknown Rx Paliperidone Palmitate [Invega 156 mg IM QMONTH 06/15/19 06/15/19 Unknown History Sustenna] Benztropine [Cogentin] 0.5 mg PO BID #60 tablet 06/17/19 Unknown Rx risperiDONE [RisperDAL] 3 mg PO BID #60 tablet 06/17/19 Unknown Rx Mental Status Exam - Vital signs Last Vital Signs Temp 98.4 F 12/19/19 10:14 Pulse 84 12/19/19 10:14 Resp 19 12/19/19 10:14 BP 116/80 12/19/19 10:14 Pulse Ox 95 12/19/19 10:14 Results Result Diagrams: 12/18/19 18:23 12/18/19 18:23 Abnormal lab results 12/18/19 12/18/19 12/18/19 Range/Units 18:23 18:23 18:23 Seg Neutrophils % (40.0-70.0) % Potassium 3.4 L (3.6-5.0) mmol/L BUN 6 L (9-20) mg/dL Salicylates < 0.3 L (2.8-20.0) mg/dL Acetaminophen 5.0 L (10.0-30.0) ug/mL 12/18/19 Range/Units 18:23 Seg Neutrophils % 70.2 H (40.0-70.0) % Potassium (3.6-5.0) mmol/L BUN (9-20) mg/dL Salicylates (2.8-20.0) mg/dL Acetaminophen (10.0-30.0) ug/mL All other labs normal.
[2019-12-19] MEDS ORDERED: ZIPRASIDONE MESYLATE 20 MG VIAL IM PRN (13:44)
[2019-12-19] MEDS: DIVALPROEX DR 125 MG TAB PO SCH ×2 (15:33→21:54)
[2019-12-19] MEDS: QUEtiapine 25 MG TAB PO SCH ×2 (15:33→21:54)
[2019-12-19] MEDS: traZODone 50 MG TAB PO SCH (21:54)
[2019-12-20] MEDS ORDERED: DIVALPROEX DR 125 MG TAB PO SCH (09:38)
--- NOTE | 2019-12-20 09:38 | Progress Note ---
Subjective - Reason for Consult Consult date: 12/20/19 Reason for consult: MHE Requesting physician: GASTON LUNDBERG III - Chief Complaint Chief complaint: PSYCH Progress Patient seen today, reports hearing voices, telling him to kill people and himself. Patient reports having mental health issues and currently not on any medications, admits to prior history of drug use, says he would like to get mental health treatment. Endorses depressed mood with SI/HI thoughts REVIEW OF SYSTEMS Constitutional: Negative for weight loss ENT: Negative for stridor Respiratory: Negative for cough or hemoptysis All other systems reviewed and are negative MENTAL STATUS EXAMINATION General Appearance and Behavior: Age appropriate, good hygiene, wearing appropriate clothes, lying in bed, good eye contact, cooperative polite with questioning. Cooperation: Participating/engaged Psychomotor Behavior: unremarkable and within normal limits Mood: Depressed Affect and affective range: decreased range, depressed Thought Process: Illogical, Thought Content: Hallucinations and illogical Speech: Normal volume, Regular rate and rhythm Intellectual Functioning: Average Suicidal Ideation: Suicidal Homicidal Ideation: Denies HI Impulse Control: Impaired Insight and Judgment: Impaired insight and judgment Memory: Normal Attention: Normal Orientation: Alert, oriented Assessment and Plan - Patient Problems (1) Schizoaffective disorder Current Visit: Yes Status: Acute Treatment Plan MEDICATIONS: Increase seroquel and Valproate Risks, benefits and alternatives of medications discussed with the patient, questions answered and consent obtained from patient. PSYCHOTHERAPY: Supportive psychotherapy provided MEDICAL: Per primary team DELIRIUM PRECAUTIONS: Please re-orient patient frequently, keep lights on during the day, and minimize benzodiazepines and opiates as these medications could worsen patient's confusion. 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 Please contact with any questions and/or concerns. Mental Status Exam - Vital signs Last Vital Signs Temp 98.6 F 12/20/19 01:38 Pulse 77 12/20/19 01:38 Resp 16 12/20/19 01:38 BP 111/70 12/20/19 01:38 Pulse Ox 99 12/20/19 01:38 Assessment and Plan - Patient Problems (1) Schizoaffective disorder Current Visit: Yes Status: Acute
[2019-12-20] MEDS: DIVALPROEX DR 250 MG TAB PO SCH ×2 (11:25→22:13)
[2019-12-20] MEDS: QUEtiapine 25 MG TAB PO SCH ×2 (11:26→22:13)
[2019-12-20] MEDS: traZODone 50 MG TAB PO SCH (22:13)
[2019-12-21 03:42] VITALS: BP 90/47
--- NOTE | 2019-12-21 08:13 | Progress Note ---
Subjective - Reason for Consult Consult date: 12/21/19 Reason for consult: MHE Requesting physician: GASTON LUNDBERG III - Chief Complaint Chief complaint: PSYCH Progress Patient seen today, patient reports feeling good today, denies SI, HI or AVH, though he says he still would like to go to [facility] because he had been informed they would help him process health care insurance. I informed pt that would not be a reason for inpt admission, at this point he can follow up outpt, continue taking medicine and go to [facility] if they have walk ins to discuss insurance options. Pt says thats fine, he feels good doing that. REVIEW OF SYSTEMS Constitutional: Negative for weight loss ENT: Negative for stridor Respiratory: Negative for cough or hemoptysis All other systems reviewed and are negative MENTAL STATUS EXAMINATION General Appearance and Behavior: Age appropriate, good hygiene, wearing appropriate clothes, lying in bed, good eye contact, cooperative polite with questioning. Cooperation: Participating/engaged Psychomotor Behavior: unremarkable and within normal limits Mood:Good Affect and affective range: Congruent with mood Thought Process: Logical/Within reality Thought Content: Logical Speech: Normal volume, Regular rate and rhythm Intellectual Functioning: Average Suicidal Ideation: Denies Homicidal Ideation: Denies HI Impulse Control:unimpaired Insight and Judgment: Normal Memory: Normal Attention: Normal Orientation: Alert, oriented Assessment and Plan - Patient Problems (1) Schizoaffective disorder Current Visit: Yes Status: Acute Treatment Plan Patient was accepted to [place], patient says he does not want to go to [place], he would prefer to be discharged rather go to any place other than [facility]. MEDICATIONS: with outpt medications Risks, benefits and alternatives of medications discussed with the patient, questions answered and consent obtained from patient. PSYCHOTHERAPY: Supportive psychotherapy provided MEDICAL: Per primary team DELIRIUM PRECAUTIONS: Please re-orient patient frequently, keep lights on during the day, and minimize benzodiazepines and opiates as these medications could worsen patient's confusion. 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 Please contact with any questions and/or concerns. Mental Status Exam - Vital signs Last Vital Signs Temp 98.0 F 12/20/19 20:22 Pulse 63 12/20/19 20:22 Resp 16 12/20/19 20:22 BP 90/47 12/20/19 20:22 Pulse Ox 94 12/20/19 20:22 Assessment and Plan - Patient Problems (1) Schizoaffective disorder Current Visit: Yes Status: Acute
[2019-12-21] MEDS: QUEtiapine 25 MG TAB PO SCH (11:12)
[2019-12-21] MEDS: DIVALPROEX DR 250 MG TAB PO SCH (11:12)
== END 2019-12-21 12:06 ==
LOC: ED 17:58
DX: F23 Brief psychotic disorder (principal); R45.851 Suicidal ideations; R45.850 Homicidal ideations; F17.200 Nicotine dependence, unspecified, uncomplicated; F25.9 Schizoaffective disorder, unspecified; Z79.899 Other long term (current) drug therapy; Z98.890 Other specified postprocedural states
CPT/HCPCS: 36415; 80048; 80307; 80320; 81001; 85025; G0480

== ENCOUNTER 2020-02-21 20:59 | Emergency (ER) | payer MEDICARE ==
[2020-02-21 22:39] LABS: Bilirubin,Urine NEG (Negative); Blood,Urine NEG (Negative); Color,Urine Yellow (Yellow); Mucus,Urine 3+ /HPF
[2020-02-21 22:46] LABS: Amphetamine Screen,Urine PRESUMPTIVE POSITIVE; Benzodiazepines Screen,Urine PRESUMPTIVE NEGATIVE; Cannabinoid Screen,Urine PRESUMPTIVE POSITIVE; Cocaine Screen,Urine PRESUMPTIVE NEGATIVE; Methadone Screen,Urine PRESUMPTIVE NEGATIVE; Opiate Screen,Urine PRESUMPTIVE NEGATIVE
[2020-02-21 22:49] LABS: Basophils # (Auto) 0.1 K/mm3 (0.0-0.1); Basophils % (Auto) 1.1 % (0.0-1.8); Eosinophils # (Auto) 0.2 K/mm3 (0.0-0.4); Eosinophils % (Auto) 2.6 % (0.0-4.3); Hematocrit 40.1 % (35.5-45.6); Hemoglobin 13.6 gm/dl (11.8-15.2); Lymphocytes # (Auto) 3.2 K/mm3 (1.2-5.4); Lymphocytes % (Auto) 47.7 % (13.4-35.0); Mean Corpuscular HGB Conc 34 % (32-34); Mean Corpuscular Volume 91 fl (84-94); Monocytes # (Auto) 0.5 K/mm3 (0.0-0.8); Monocytes % (Auto) 7.8 % (0.0-7.3); Platelet Count 344 K/mm3 (140-440); Red Blood Count 4.41 M/mm3 (3.65-5.03); Red Cell Distribution Width 13.1 % (13.2-15.2)
[2020-02-21 23:06] LABS: BUN/Creatinine Ratio 12; Blood Urea Nitrogen 11 mg/dL (9-20); Calcium 9.4 mg/dL (8.4-10.2); Hemolysis Index 10
--- NOTE | 2020-02-22 00:10 | Emergency Department Report ---
ED Psych HPI - General Chief Complaint: Psych Stated Complaint: HOMICIDAL IDEATIONS Time Seen by Provider: 02/21/20 22:43 Source: patient Mode of arrival: Stretcher - History of Present Illness Initial Comments: Patient is a 34-year-old male who is presenting with homicidal ideations. Patient states he is hearing command hallucinations telling him to harm people. States he is not acted on this. Denies any suicidality at this time. States he is actively using cocaine and marijuana. He does get an Invega shot monthly has been compliant. - Related Data Home Medications Medication Instructions Recorded Confirmed Last Taken Paliperidone Palmitate [Invega 156 mg IM QMONTH 06/15/19 12/19/19 Unknown Sustenna] Previous Rx's Medication Instructions Recorded Last Taken Type Fluticasone [Flonase] 1 spray NS QDAY #1 bottle 09/23/16 Unknown Rx Loratadine (Nf) [Claritin] 10 mg PO DAILY PRN #30 tablet 09/23/16 Unknown Rx Benztropine [Cogentin] 0.5 mg PO BID #60 tablet 06/17/[address] [Depranulfo Dr] 500 mg PO BID #60 tablet 12/21/19 Unknown Rx QUEtiapine [SEROquel] 100 mg PO BID #60 tablet 12/21/19 Unknown Rx traZODone [Desyrel] 50 mg PO QHS #30 tablet 12/21/19 Unknown Rx Allergies Allergy/AdvReac Type Severity Reaction Status Date / Time No Known Allergies Allergy Verified 12/18/19 18:00 ED Review of Systems ROS: Stated complaint: HOMICIDAL IDEATIONS Other details as noted in HPI Comment: All other systems reviewed and negative ED Past Medical Hx - Past Medical History Previous Medical History?: Yes Hx Psychiatric Treatment: Yes (Schizophrenia) - Surgical History Past Surgical History?: Yes Additional Surgical History: Ear surgery as a child - Social History Smoking Status: Current Every Day Smoker Substance Use Type: Alcohol, Cocaine, Marijuana - Medications Home Medications: Home Medications Medication Instructions Recorded Confirmed Last Taken Type Fluticasone [Flonase] 1 spray NS QDAY #1 bottle 09/23/16 12/19/19 Unknown Rx Loratadine (Nf) [Claritin] 10 mg PO DAILY PRN #30 tablet 09/23/16 12/19/19 Unknown Rx Paliperidone Palmitate [Invega 156 mg IM QMONTH 06/15/19 12/19/19 Unknown History Sustenna] Benztropine [Cogentin] 0.5 mg PO BID #60 tablet 06/17/19 12/19/[address] [Depakote Dr] 500 mg PO BID #60 tablet 12/21/19 Unknown Rx QUEtiapine [SEROquel] 100 mg PO BID #60 tablet 12/21/19 Unknown Rx traZODone [Desyrel] 50 mg PO QHS #30 tablet 12/21/19 Unknown Rx ED Physical Exam - General Limitations: No Limitations General appearance: alert, in no apparent distress - Head Head exam: Present: atraumatic, normocephalic - Eye Eye exam: Present: normal appearance - ENT ENT exam: Present: mucous membranes moist - Neck Neck exam: Present: normal inspection - Respiratory Respiratory exam: Present: normal lung sounds bilaterally. Absent: respiratory distress, wheezes, rales, rhonchi - Cardiovascular Cardiovascular Exam: Present: regular rate, normal rhythm. Absent: systolic murmur, diastolic murmur, rubs, gallop - GI/Abdominal GI/Abdominal exam: Present: soft, normal bowel sounds. Absent: distended, tenderness, guarding - Rectal Rectal exam: Present: deferred - Extremities Exam Extremities exam: Present: normal inspection - Back Exam Back exam: Present: normal inspection - Neurological Exam Neurological exam: Present: alert, oriented X3 - Psychiatric Psychiatric exam: Present: normal affect, normal mood - Skin Skin exam: Present: warm, dry, intact, normal color. Absent: rash ED Course Vital Signs 02/21/20 22:15 Temperature 98.2 F Pulse Rate 95 H Respiratory 16 Rate Blood Pressure 97/66 O2 Sat by Pulse 98 Oximetry - Reevaluation(s) Reevaluation #1: 02/22/20 00:10 Patient is medically cleared for psychiatric evaluation ED Medical Decision Making - Lab Data Result diagrams: 02/21/20 22:30 02/21/20 22:30 Lab Results 02/21/20 02/21/20 02/21/20 Range/Units 22:30 22:30 22:30 WBC (4.5-11.0) K/mm3 RBC (3.65-5.03) M/mm3 Hgb (11.8-15.2) gm/dl Hct (35.5-45.6) % MCV (84-94) fl MCH (28-32) pg MCHC (32-34) % RDW (13.2-15.2) % Plt Count (140-440) K/mm3 Lymph % (Auto) (13.4-35.0) % [place] % (Auto) (0.0-7.3) % Eos % (Auto) (0.0-4.3) % Baso % (Auto) (0.0-1.8) % Lymph # (Auto) (1.2-5.4) K/mm3 [place] # (Auto) (0.0-0.8) K/mm3 Eos # (Auto) (0.0-0.4) K/mm3 Baso # (Auto) (0.0-0.1) K/mm3 Seg Neutrophils % (40.0-70.0) % Seg Neutrophils # (1.8-7.7) K/mm3 Sodium 139 (137-145) mmol/L Potassium 4.0 (3.6-5.0) mmol/L Chloride 103.2 (98-107) mmol/L Carbon Dioxide 26 (22-30) mmol/L Anion Gap 14 mmol/L BUN 11 (9-20) mg/dL Creatinine 0.9 (0.8-1.3) mg/dL Estimated GFR > 60 ml/min BUN/Creatinine Ratio 12 % Glucose 89 (75-100) mg/dL Calcium 9.4 (8.4-10.2) mg/dL Urine Color (Yellow) Urine Turbidity (Clear) Urine pH (5.0-7.0) Ur Specific [place] (1.003-1.030) Urine Protein (Negative) mg/dL Urine Glucose (UA) (Negative) mg/dL Urine Ketones (Negative) mg/dL Urine Blood (Negative) Urine Nitrite (Negative) Urine Bilirubin (Negative) Urine Urobilinogen (<2.0) mg/dL Ur Leukocyte Esterase (Negative) Urine WBC (Auto) (0.0-6.0) /HPF Urine RBC (Auto) (0.0-6.0) /HPF U Epithel Cells (Auto) (0-13.0) /HPF Urine Mucus /HPF Salicylates < 0.3 L (2.8-20.0) mg/dL Urine Opiates Screen Urine Methadone Screen Acetaminophen 5.0 L (10.0-30.0) ug/mL Ur Barbiturates Screen Ur Phencyclidine Scrn Ur Amphetamines Screen U Benzodiazepines Scrn Urine Cocaine Screen U Marijuana (THC) Screen Drugs of Abuse Note Plasma/Serum Alcohol (0-0.07) % 02/21/20 02/21/20 02/21/20 Range/Units 22:30 22:30 22:32 WBC 6.7 (4.5-11.0) K/mm3 RBC 4.41 (3.65-5.03) M/mm3 Hgb 13.6 (11.8-15.2) gm/dl Hct 40.1 (35.5-45.6) % MCV 91 (84-94) fl MCH 31 (28-32) pg MCHC 34 (32-34) % RDW 13.1 L (13.2-15.2) % Plt Count 344 (140-440) K/mm3 Lymph % (Auto) 47.7 H (13.4-35.0) % [place] % (Auto) 7.8 H (0.0-7.3) % Eos % (Auto) 2.6 (0.0-4.3) % Baso % (Auto) 1.1 (0.0-1.8) % Lymph # (Auto) 3.2 (1.2-5.4) K/mm3 [place] # (Auto) 0.5 (0.0-0.8) K/mm3 Eos # (Auto) 0.2 (0.0-0.4) K/mm3 Baso # (Auto) 0.1 (0.0-0.1) K/mm3 Seg Neutrophils % 40.8 (40.0-70.0) % Seg Neutrophils # 2.7 (1.8-7.7) K/mm3 Sodium (137-145) mmol/L Potassium (3.6-5.0) mmol/L Chloride (98-107) mmol/L Carbon Dioxide (22-30) mmol/L Anion Gap mmol/L BUN (9-20) mg/dL Creatinine (0.8-1.3) mg/dL Estimated GFR ml/min BUN/Creatinine Ratio % Glucose (75-100) mg/dL Calcium (8.4-10.2) mg/dL Urine Color Yellow (Yellow) Urine Turbidity Clear (Clear) Urine pH 5.0 (5.0-7.0) Ur Specific [place] 1.033 H (1.003-1.030) Urine Protein 30 mg/dl (Negative) mg/dL Urine Glucose (UA) Neg (Negative) mg/dL Urine Ketones Tr (Negative) mg/dL Urine Blood Neg (Negative) Urine Nitrite Neg (Negative) Urine Bilirubin Neg (Negative) Urine Urobilinogen 4.0 (<2.0) mg/dL Ur Leukocyte Esterase Neg (Negative) Urine WBC (Auto) 1.0 (0.0-6.0) /HPF Urine RBC (Auto) 1.0 (0.0-6.0) /HPF U Epithel Cells (Auto) 1.0 (0-13.0) /HPF Urine Mucus 3+ /HPF Salicylates (2.8-20.0) mg/dL Urine Opiates Screen Urine Methadone Screen Acetaminophen (10.0-30.0) ug/mL Ur Barbiturates Screen Ur Phencyclidine Scrn Ur Amphetamines Screen U Benzodiazepines Scrn Urine Cocaine Screen U Marijuana (THC) Screen Drugs of Abuse Note Plasma/Serum Alcohol < 0.01 (0-0.07) % 02/21/20 Range/Units 22:32 WBC (4.5-11.0) K/mm3 RBC (3.65-5.03) M/mm3 Hgb (11.8-15.2) gm/dl Hct (35.5-45.6) % MCV (84-94) fl MCH (28-32) pg MCHC (32-34) % RDW (13.2-15.2) % Plt Count (140-440) K/mm3 Lymph % (Auto) (13.4-35.0) % [place] % (Auto) (0.0-7.3) % Eos % (Auto) (0.0-4.3) % Baso % (Auto) (0.0-1.8) % Lymph # (Auto) (1.2-5.4) K/mm3 [place] # (Auto) (0.0-0.8) K/mm3 Eos # (Auto) (0.0-0.4) K/mm3 Baso # (Auto) (0.0-0.1) K/mm3 Seg Neutrophils % (40.0-70.0) % Seg Neutrophils # (1.8-7.7) K/mm3 Sodium (137-145) mmol/L Potassium (3.6-5.0) mmol/L Chloride (98-107) mmol/L Carbon Dioxide (22-30) mmol/L Anion Gap mmol/L BUN (9-20) mg/dL Creatinine (0.8-1.3) mg/dL Estimated GFR ml/min BUN/Creatinine Ratio % Glucose (75-100) mg/dL Calcium (8.4-10.2) mg/dL Urine Color (Yellow) Urine Turbidity (Clear) Urine pH (5.0-7.0) Ur Specific [place] (1.003-1.030) Urine Protein (Negative) mg/dL Urine Glucose (UA) (Negative) mg/dL Urine Ketones (Negative) mg/dL Urine Blood (Negative) Urine Nitrite (Negative) Urine Bilirubin (Negative) Urine Urobilinogen (<2.0) mg/dL Ur Leukocyte Esterase (Negative) Urine WBC (Auto) (0.0-6.0) /HPF Urine RBC (Auto) (0.0-6.0) /HPF U Epithel Cells (Auto) (0-13.0) /HPF Urine Mucus /HPF Salicylates (2.8-20.0) mg/dL Urine Opiates Screen Presumptive negative Urine Methadone Screen Presumptive negative Acetaminophen (10.0-30.0) ug/mL Ur Barbiturates Screen Presumptive negative Ur Phencyclidine Scrn Presumptive negative Ur Amphetamines Screen Presumptive positive U Benzodiazepines Scrn Presumptive negative Urine Cocaine Screen Presumptive negative U Marijuana (THC) Screen Presumptive positive Drugs of Abuse Note Disclamer Plasma/Serum Alcohol (0-0.07) % Critical care attestation.: If time is entered above; I have spent that time in minutes in the direct care of this critically ill patient, excluding procedure time. ED Disposition Condition: Stable Referrals: EDER BROWN MD [Primary Care Provider] - 3-5 Days
--- NOTE | 2020-02-22 07:08 | Consultation ---
History of Present Illness - Reason for Consult Consult date: 02/22/20 Reason for consult: MHE Requesting physician: BETTY SIEGEL - History of Present Psychiatric Illness Per ED Provider: Patient is a 34-year-old male who is presenting with homicidal ideations. Patient states he is hearing command hallucinations tellin g him to harm people. States he is not acted on this. Denies any suicidality at this time. States he is actively using cocaine and marijuana. He does get an Invega shot monthly has been compliant. PSYCH HPI Adriel Pratt is 34 year old, single, unemployed on SSI male who resides in a shelter, presented to the ER for suicidal and homicidal thoughts and hallucinations. Patient reports he has been hearing and doing things like msoking more marijuanna, doing hard drugs like cocaine that seems to have messed him up again and he is now having Suicidal thougths and ho micidal thoughts. Patient says he does not wish to hurt people. Patient is known to me from previous encounter. WIll recomend inpatient PAST PSYCHIATRIC HISTORY Diagnoses: schizophrenia Suicide attempts or Self-harm behavior: Denies Prior psychiatric hospitalizations: "a lot" Substance Abuse history: Meth, Ice, Cocaine, Heroine Previous psychiatric medications tried: Invega, Geodon Outpatient treatment: Not in three months PAST MEDICAL HISTORY: Denies Family Psychiatric History: None reported or documented SOCIAL HISTORY Marital Status: Single Living Arrangements: intermediate Employment Status: Disabled Access to guns/weapons: Denies Education: 9th grade History of Abuse: none reported Legal History: none reported REVIEW OF SYSTEMS Constitutional: Negative for weight loss ENT: Negative for stridor Respiratory: Negative for cough or hemoptysis All other systems reviewed and are negative MENTAL STATUS EXAMINATION General Appearance: Dressed appropriately Behavior: calm and cooperative Mood: "depressed" Affect and affective range: congruent with stated mood, restricted Thought Process: illogical Thought Content: hallucinations, racing thoughts Speech: Normal volume, Regular rate and rhythm Suicidal Ideation: Yes Homicidal Ideation: Yes Hallucinations: Auditory Delusions: None elicited Insight and Judgment: Limited Memory/Cognition: Limited Attention: Normal Orientation: Alert, oriented Assessment Schizoaffective Disorder, Bipolar Type Treatment Plan MEDICATIONS: Restarted home meds Risks, benefits and alternatives of medications discussed with the patient, questions answered and consent obtained from patient. PSYCHOTHERAPY: Supportive psychotherapy provided MEDICAL: Per primary team DELIRIUM PRECAUTIONS: Please re-orient patient frequently, keep lights on during the day, and minimize benzodiazepines and opiates as these medications could worsen patient's confusion. BUTTON CLAMPER: DISPOSITION: Do Recommend acute inpatient psychiatric hospitalization at this time LEGAL STATUS: 1013 FOLLOW-UP: Will follow Thank you for the consult. Please contact with any questions and/or concerns. Medications and Allergies Allergies Allergy/AdvReac Type Severity Reaction Status Date / Time No Known Allergies Allergy Verified 12/18/19 18:00 Home Medications Medication Instructions Recorded Confirmed Last Taken Type Fluticasone [Flonase] 1 spray NS QDAY #1 bottle 09/23/16 12/19/19 Unknown Rx Loratadine (Nf) [Claritin] 10 mg PO DAILY PRN #30 tablet 09/23/16 12/19/19 Unknown Rx Paliperidone Palmitate [Invega 156 mg IM QMONTH 06/15/19 12/19/19 Unknown History Sustenna] Benztropine [Cogentin] 0.5 mg PO BID #60 tablet 06/17/19 12/19/[address] [Depakote Dr] 500 mg PO BID #60 tablet 12/21/19 Unknown Rx QUEtiapine [SEROquel] 100 mg PO BID #60 tablet 12/21/19 Unknown Rx traZODone [Desyrel] 50 mg PO QHS #30 tablet 12/21/19 Unknown Rx Mental Status Exam - Vital signs Last Vital Signs Temp 98.1 F 02/22/20 01:40 Pulse 83 02/22/20 01:40 Resp 18 02/22/20 01:40 BP 100/63 02/22/20 01:40 Pulse Ox 97 02/22/20 01:40 Results Result Diagrams: 02/21/20 22:30 02/21/20 22:30 Abnormal lab results 02/21/20 02/21/20 02/21/20 Range/Units 22:30 22:30 22:30 RDW 13.1 L (13.2-15.2) % Lymph % (Auto) 47.7 H (13.4-35.0) % [place] % (Auto) 7.8 H (0.0-7.3) % Ur Specific [place] (1.003-1.030) Salicylates < 0.3 L (2.8-20.0) mg/dL Acetaminophen 5.0 L (10.0-30.0) ug/mL 02/21/20 Range/Units 22:32 RDW (13.2-15.2) % Lymph % (Auto) (13.4-35.0) % [place] % (Auto) (0.0-7.3) % Ur Specific [place] 1.033 H (1.003-1.030) Salicylates (2.8-20.0) mg/dL Acetaminophen (10.0-30.0) ug/mL All other labs normal.
[2020-02-22] MEDS ORDERED: QUEtiapine 25 MG TAB PO SCH (10:00)
[2020-02-22] MEDS: BENZTROPINE 0.5 MG TAB PO SCH ×2 (12:43→22:48)
[2020-02-22] MEDS: DIVALPROEX DR 250 MG TAB PO SCH ×2 (12:43→22:50)
[2020-02-22] MEDS: QUEtiapine 100 MG TAB PO SCH ×2 (12:43→22:49)
[2020-02-22] MEDS ORDERED: traZODone 50 MG TAB PO SCH (22:00)
[2020-02-23 10:11] VITALS: BP 106/77
--- NOTE | 2020-02-23 11:03 | Progress Note ---
Subjective - Reason for Consult Consult date: 02/23/20 Reason for consult: SI - Chief Complaint Chief complaint: During my interview with the patient today, he is a/o x 3. He is calm, cooperative and polite. The patient states he presented to the ER for hearing voices. He says "but I always hear voices. That's been happening. But right now I'm good." He says "the real reason I came here because the place I was staying, I didn't like it and they took my phone." He says "that's the only reason I came here." The patient says he uses "wee and was taking pills." He denies SI/HI at present. He denies hallucinations at present, but states "he normally hears them." The patient states, "I'm comfortable going home with my momma. She will help me." The patient says "I feel safe going home. You can give this bed to somebody else." REVIEW OF SYSTEMS Constitutional: Negative for weight loss ENT: Negative for stridor Respiratory: Negative for cough or hemoptysis All other systems reviewed and are negative MENTAL STATUS EXAMINATION General Appearance: Dressed appropriately Behavior: calm and cooperative, polite Mood: "good" Affect and affective range: congruent with stated mood Thought Process: logical, goal directed, optimistic Thought Content: None Speech: Normal volume, Regular rate and rhythm Suicidal Ideation: Denies Homicidal Ideation: Denies Hallucinations: Denies Delusions: None elicited Insight and Judgment: Limited Memory/Cognition: Limited Attention: Normal Orientation: Alert, oriented Assessment Methamphetamine Use Disorder Substsance Induced Mood Disorder Schizoaffective Disorder, Bipolar Type Treatment Plan D/c 1013 Scripts: Depakote Dr 500mg po BID Seroquel 100mg po BID Cogentin 0.5mg po BID Trazodone 50mg po qhs Risks, benefits and alternatives of medications discussed with the patient, questions answered and consent obtained from patient. PSYCHOTHERAPY: Supportive psychotherapy provided MEDICAL: Per primary team DELIRIUM PRECAUTIONS: Please re-orient patient frequently, keep lights on during the day, and minimize benzodiazepines and opiates as these medications could worsen patient's confusion. VIDEO GAME DEVELOPER: DISPOSITION: Do not recommend acute inpatient psychiatric hospitalization at this time. The patient understands and agrees that if suicidal thoughts or tendencies or any feelings of endangerment are to arise he is to seek immediate assistance including but not limited to the crisis hotline, 911/ER. The manager operational is to further implement the safety plan and give the patient re sources for cognitive behavioral therapy, drug rehab, outpatient resources The patient is to abstain from all illicit drug use He is to follow up with outpatient psych in 7 to 14 days upon discharge. Will sign off. Thank you for the consult. Please contact with any questions and/or concerns. Mental Status Exam - Vital signs Last Vital Signs Temp 98.7 F 02/23/20 10:09 Pulse 100 H 02/23/20 10:09 Resp 18 02/23/20 10:09 BP 106/77 02/23/20 10:09 Pulse Ox 95 02/23/20 10:09
--- NOTE | 2020-02-23 11:56 | Event Note ---
Date: 02/23/20 The patient was evaluated in the emergency department for symptoms described in the history of present illness. He/she was evaluated in the context of the global COVID-19 pandemic, which necessitated consideration that the patient might be at risk for infection with the virus that causes COVID-19. Institutional protocols and algorithms that pertain to the evaluation of patients at risk for COVID-19 are in a state of rapid change based on information released by regulatory bodies including the CDC and federal and state organizations. These policies and algorithms were followed during the patient's care in the emergency department. Please note that these policies, procedures and recommendations changed on a rapid basis. I have evaluated this patient personally. He is pleasant, calm and cooperative, not homicidal, not suicidal, alert and oriented x3, walking with a steady gait, clinically sober, and he currently exhibits decision-making capacity. His physical exam is unremarkable, screening laboratory studies unremarkable, and he had a fairly unremarkable stay while here in the emergency room. 1013 has been recommended to be discontinued, and I agree with this. At this point time, patient's exam and presentation is not consistent with an acute psychiatric crisis that would be criteria for involuntary confinement, invo luntary hold, or 1013. He denies physical pain and medical complaints at this time. He does not require medical admission or hospitalization at this time. The psychiatric team had made the recommendations, and have further recommended outpatient follow-up. Vital Signs 02/21/20 02/21/20 02/22/20 22:15 22:46 01:40 Temperature 98.2 F 98.2 F 98.1 F Pulse Rate 95 H 96 H 83 Respiratory 16 18 18 Rate Blood Pressure 97/66 124/91 Blood Pressure 100/63 [Left] O2 Sat by Pulse 98 98 97 Oximetry 02/22/20 02/22/20 02/23/20 20:00 21:00 02:54 Temperature 98.1 F 98.6 F Pulse Rate 69 87 Respiratory 20 20 18 Rate Blood Pressure 113/78 Blood Pressure 108/74 [Left] O2 Sat by Pulse 97 97 94 Oximetry 02/23/20 10:09 Temperature 98.7 F Pulse Rate 100 H Respiratory 18 Rate Blood Pressure Blood Pressure 106/77 [Left] O2 Sat by Pulse 95 Oximetry Lab Results 02/21/20 02/21/20 02/21/20 Range/Units 22:30 22:30 22:30 WBC (4.5-11.0) K/mm3 RBC (3.65-5.03) M/mm3 Hgb (11.8-15.2) gm/dl Hct (35.5-45.6) % MCV (84-94) fl MCH (28-32) pg MCHC (32-34) % RDW (13.2-15.2) % Plt Count (140-440) K/mm3 Lymph % (Auto) (13.4-35.0) % [place] % (Auto) (0.0-7.3) % Eos % (Auto) (0.0-4.3) % Baso % (Auto) (0.0-1.8) % Lymph # (Auto) (1.2-5.4) K/mm3 [place] # (Auto) (0.0-0.8) K/mm3 Eos # (Auto) (0.0-0.4) K/mm3 Baso # (Auto) (0.0-0.1) K/mm3 Seg Neutrophils % (40.0-70.0) % Seg Neutrophils # (1.8-7.7) K/mm3 Sodium 139 (137-145) mmol/L Potassium 4.0 (3.6-5.0) mmol/L Chloride 103.2 (98-107) mmol/L Carbon Dioxide 26 (22-30) mmol/L Anion Gap 14 mmol/L BUN 11 (9-20) mg/dL Creatinine 0.9 (0.8-1.3) mg/dL Estimated GFR > 60 ml/min BUN/Creatinine Ratio 12 % Glucose 89 (75-100) mg/dL Calcium 9.4 (8.4-10.2) mg/dL Urine Color (Yellow) Urine Turbidity (Clear) Urine pH (5.0-7.0) Ur Specific [employer] (1.003-1.030) Urine Protein (Negative) mg/dL Urine Glucose (UA) (Negative) mg/dL Urine Ketones (Negative) mg/dL Urine Blood (Negative) Urine Nitrite (Negative) Urine Bilirubin (Negative) Urine Urobilinogen (<2.0) mg/dL Ur Leukocyte Esterase (Negative) Urine WBC (Auto) (0.0-6.0) /HPF Urine RBC (Auto) (0.0-6.0) /HPF U Epithel Cells (Auto) (0-13.0) /HPF Urine Mucus /HPF Salicylates < 0.3 L (2.8-20.0) mg/dL Urine Opiates Screen Urine Methadone Screen Acetaminophen 5.0 L (10.0-30.0) ug/mL Ur Barbiturates Screen Ur Phencyclidine Scrn Ur Amphetamines Screen U Benzodiazepines Scrn Urine Cocaine Screen U Marijuana (THC) Screen Drugs of Abuse Note Plasma/Serum Alcohol (0-0.07) % 02/21/20 02/21/20 02/21/20 Range/Units 22:30 22:30 22:32 WBC 6.7 (4.5-11.0) K/mm3 RBC 4.41 (3.65-5.03) M/mm3 Hgb 13.6 (11.8-15.2) gm/dl Hct 40.1 (35.5-45.6) % MCV 91 (84-94) fl MCH 31 (28-32) pg MCHC 34 (32-34) % RDW 13.1 L (13.2-15.2) % Plt Count 344 (140-440) K/mm3 Lymph % (Auto) 47.7 H (13.4-35.0) % [place] % (Auto) 7.8 H (0.0-7.3) % Eos % (Auto) 2.6 (0.0-4.3) % Baso % (Auto) 1.1 (0.0-1.8) % Lymph # (Auto) 3.2 (1.2-5.4) K/mm3 [place] # (Auto) 0.5 (0.0-0.8) K/mm3 Eos # (Auto) 0.2 (0.0-0.4) K/mm3 Baso # (Auto) 0.1 (0.0-0.1) K/mm3 Seg Neutrophils % 40.8 (40.0-70.0) % Seg Neutrophils # 2.7 (1.8-7.7) K/mm3 Sodium (137-145) mmol/L Potassium (3.6-5.0) mmol/L Chloride (98-107) mmol/L Carbon Dioxide (22-30) mmol/L Anion Gap mmol/L BUN (9-20) mg/dL Creatinine (0.8-1.3) mg/dL Estimated GFR ml/min BUN/Creatinine Ratio % Glucose (75-100) mg/dL Calcium (8.4-10.2) mg/dL Urine Color Yellow (Yellow) Urine Turbidity Clear (Clear) Urine pH 5.0 (5.0-7.0) Ur Specific [employer] 1.033 H (1.003-1.030) Urine Protein 30 mg/dl (Negative) mg/dL Urine Glucose (UA) Neg (Negative) mg/dL Urine Ketones Tr (Negative) mg/dL Urine Blood Neg (Negative) Urine Nitrite Neg (Negative) Urine Bilirubin Neg (Negative) Urine Urobilinogen 4.0 (<2.0) mg/dL Ur Leukocyte Esterase Neg (Negative) Urine WBC (Auto) 1.0 (0.0-6.0) /HPF Urine RBC (Auto) 1.0 (0.0-6.0) /HPF U Epithel Cells (Auto) 1.0 (0-13.0) /HPF Urine Mucus 3+ /HPF Salicylates (2.8-20.0) mg/dL Urine Opiates Screen Urine Methadone Screen Acetaminophen (10.0-30.0) ug/mL Ur Barbiturates Screen Ur Phencyclidine Scrn Ur Amphetamines Screen U Benzodiazepines Scrn Urine Cocaine Screen U Marijuana (THC) Screen Drugs of Abuse Note Plasma/Serum Alcohol < 0.01 (0-0.07) % 02/21/20 Range/Units 22:32 WBC (4.5-11.0) K/mm3 RBC (3.65-5.03) M/mm3 Hgb (11.8-15.2) gm/dl Hct (35.5-45.6) % MCV (84-94) fl MCH (28-32) pg MCHC (32-34) % RDW (13.2-15.2) % Plt Count (140-440) K/mm3 Lymph % (Auto) (13.4-35.0) % [place] % (Auto) (0.0-7.3) % Eos % (Auto) (0.0-4.3) % Baso % (Auto) (0.0-1.8) % Lymph # (Auto) (1.2-5.4) K/mm3 [place] # (Auto) (0.0-0.8) K/mm3 Eos # (Auto) (0.0-0.4) K/mm3 Baso # (Auto) (0.0-0.1) K/mm3 Seg Neutrophils % (40.0-70.0) % Seg Neutrophils # (1.8-7.7) K/mm3 Sodium (137-145) mmol/L Potassium (3.6-5.0) mmol/L Chloride (98-107) mmol/L Carbon Dioxide (22-30) mmol/L Anion Gap mmol/L BUN (9-20) mg/dL Creatinine (0.8-1.3) mg/dL Estimated GFR ml/min BUN/Creatinine Ratio % Glucose (75-100) mg/dL Calcium (8.4-10.2) mg/dL Urine Color (Yellow) Urine Turbidity (Clear) Urine pH (5.0-7.0) Ur Specific [employer] (1.003-1.030) Urine Protein (Negative) mg/dL Urine Glucose (UA) (Negative) mg/dL Urine Ketones (Negative) mg/dL Urine Blood (Negative) Urine Nitrite (Negative) Urine Bilirubin (Negative) Urine Urobilinogen (<2.0) mg/dL Ur Leukocyte Esterase (Negative) Urine WBC (Auto) (0.0-6.0) /HPF Urine RBC (Auto) (0.0-6.0) /HPF U Epithel Cells (Auto) (0-13.0) /HPF Urine Mucus /HPF Salicylates (2.8-20.0) mg/dL Urine Opiates Screen Presumptive negative Urine Methadone Screen Presumptive negative Acetaminophen (10.0-30.0) ug/mL Ur Barbiturates Screen Presumptive negative Ur Phencyclidine Scrn Presumptive negative Ur Amphetamines Screen Presumptive positive U Benzodiazepines Scrn Presumptive negative Urine Cocaine Screen Presumptive negative U Marijuana (THC) Screen Presumptive positive Drugs of Abuse Note Disclamer Plasma/Serum Alcohol (0-0.07) %
[2020-02-23] MEDS: QUEtiapine 100 MG TAB PO SCH (12:10)
[2020-02-23] MEDS: BENZTROPINE 0.5 MG TAB PO SCH (12:10)
[2020-02-23] MEDS: DIVALPROEX DR 250 MG TAB PO SCH (12:10)
== END 2020-02-23 12:23 | disposition home or self-care (01) ==
LOC: ED 20:59
DX: R45.850 Homicidal ideations (principal); R44.3 Hallucinations, unspecified; F17.200 Nicotine dependence, unspecified, uncomplicated; F12.10 Cannabis abuse, uncomplicated; Z98.890 Other specified postprocedural states; Z79.899 Other long term (current) drug therapy
CPT/HCPCS: 36415; 80048; 80307; 80320; 81001; 85025; G0480

== ENCOUNTER 2020-06-02 01:28 | Emergency (ER) | payer MEDICARE ==
[2020-06-02 01:39] VITALS: BP 113/80
[2020-06-02 02:00] LABS: Basophils % (Auto) 0.8 % (0.0-1.8); Eosinophils # (Auto) 0.2 K/mm3 (0.0-0.4); Eosinophils % (Auto) 3.2 % (0.0-4.3); Hematocrit 39.4 % (35.5-45.6); Hemoglobin 13.7 gm/dl (11.8-15.2); Lymphocytes # (Auto) 2.5 K/mm3 (1.2-5.4); Lymphocytes % (Auto) 45.4 % (13.4-35.0); Mean Corpuscular HGB Conc 35 % (32-34); Mean Corpuscular Volume 89 fl (84-94); Monocytes # (Auto) 0.4 K/mm3 (0.0-0.8); Monocytes % (Auto) 7.4 % (0.0-7.3); Platelet Count 356 K/mm3 (140-440); Red Blood Count 4.41 M/mm3 (3.65-5.03)
[2020-06-02 02:21] LABS: BUN/Creatinine Ratio 10; Blood Urea Nitrogen 9 mg/dL (9-20); Calcium 9.5 mg/dL (8.4-10.2); Hemolysis Index 1
[2020-06-02 02:26] LABS: Amphetamine Screen,Urine PRESUMPTIVE NEGATIVE; Benzodiazepines Screen,Urine PRESUMPTIVE NEGATIVE; Cannabinoid Screen,Urine PRESUMPTIVE POSITIVE; Cocaine Screen,Urine PRESUMPTIVE NEGATIVE; Methadone Screen,Urine PRESUMPTIVE NEGATIVE; Opiate Screen,Urine PRESUMPTIVE NEGATIVE
[2020-06-02 02:43] LABS: Bacteria,Urine 1+ /HPF (Negative); Bilirubin,Urine NEG (Negative); Blood,Urine NEG (Negative); Color,Urine Yellow (Yellow); Mucus,Urine 2+ /HPF; Protein,Urine <15 mg/dL mg/dL (Negative); Urobilinogen,Urine < 2.0 mg/dL (<2.0)
--- NOTE | 2020-06-02 02:47 | Emergency Department Report ---
HPI - General Chief Complaint: Psych Time Seen by Provider: 06/02/20 02:31 - HPI HPI: This is a 35-year-old male who presents to the emergency department with complaint of "I relapsed and started using drugs." The patient says that he is living in some type of sober living residence. He also has a history of schizophrenia and admits to noncompliance with his medication. He last had his Invega shot about 1 month ago. Patient admits to using cocaine and marijuana. He denies any auditory or visual hallucinations. He denies any suicidal or homicidal ideations. The patient says that overall he feels like he is in a good place in his life and he does not want to mess it up with his drug relapse. The patient is asking about a [facility] program or some type of inpatient drug rehabilitation. He denies having a primary care physician or any psychiatrist or behavioral health facility that he follows with. ED Past Medical Hx - Past Medical History Previous Medical History?: Yes Hx Psychiatric Treatment: Yes (Schizophrenia) Hx Asthma: Yes - Surgical History Past Surgical History?: Yes Additional Surgical History: Ear surgery as a child - Social History Smoking Status: Current Every Day Smoker Substance Use Type: Alcohol, Cocaine, Marijuana - Medications Home Medications: Home Medications Medication Instructions Recorded Confirmed Last Taken Type Fluticasone [Flonase] 1 spray NS QDAY #1 bottle 09/23/16 12/19/19 Unknown Rx Loratadine (Nf) [Claritin] 10 mg PO DAILY PRN #30 tablet 09/23/16 12/19/19 Unknown Rx Paliperidone Palmitate [Invega 156 mg IM QMONTH 06/15/19 12/19/19 Unknown History Sustenna] Benztropine [Cogentin] 0.5 mg PO BID #60 tablet 06/17/19 12/19/[address] Bozena Donaldson] 500 mg PO BID #60 tablet 12/21/19 Unknown Rx QUEtiapine [SEROquel] 100 mg PO BID #60 tablet 12/21/19 Unknown Rx traZODone [Desyrel] 50 mg PO QHS #30 tablet 12/21/19 Unknown Rx Benztropine [Cogentin] 0.5 mg PO BID #60 tab 02/23/20 Unknown Rx Divalproex [Timmy DONALDSON] 500 mg PO BID #60 tablet 02/23/20 Unknown Rx QUEtiapine [SEROquel] 100 mg PO BID #60 tab 02/23/20 Unknown Rx traZODone [Desyrel] 50 mg PO QHS #30 tab 02/23/20 Unknown Rx ED Review of Systems ROS: Stated complaint: MH DRUG ABUSE Other details as noted in HPI Comment: All other systems reviewed and negative Constitutional: denies: chills, fever Eyes: denies: eye pain, vision change ENT: denies: ear pain, throat pain Respiratory: denies: cough, shortness of breath Cardiovascular: denies: chest pain, palpitations Gastrointestinal: denies: abdominal pain, vomiting Genitourinary: denies: dysuria, discharge Musculoskeletal: denies: back pain, arthralgia Skin: denies: rash, lesions Psychiatric: denies: auditory hallucinations, visual hallucinations, homicidal thoughts, suicidal thoughts Physical Exam - Physical Exam Vital Signs: Vital Signs 06/02/20 01:37 Temperature 98.1 F Pulse Rate 97 H Respiratory 17 Rate Blood Pressure 113/80 O2 Sat by Pulse 97 Oximetry Physical Exam: GENERAL: The patient is well-developed well-nourished. HENT: Normocephalic. Atraumatic. Patient has moist mucous membranes. EYES: Extraocular motions are intact. NECK: Supple. Trachea is midline. CHEST/LUNGS: Clear to auscultation. There is no respiratory distress noted. HEART/CARDIOVASCULAR: Regular. There is no tachycardia. There is no murmur. ABDOMEN: Abdomen is soft, nontender. Patient has normal bowel sounds. SKIN: Skin is warm and dry. NEURO: The patient is awake, alert, and oriented. The patient is cooperative. The patient has no focal neurologic deficits. Normal speech. MUSCULOSKELETAL: There is no tenderness or deformity. There is no limitation range of motion. ED Course Vital Signs 06/02/20 01:37 Temperature 98.1 F Pulse Rate 97 H Respiratory 17 Rate Blood Pressure 113/80 O2 Sat by Pulse 97 Oximetry ED Medical Decision Making - Lab Data Result diagrams: 06/02/20 01:45 06/02/20 01:45 Lab Results 06/02/20 06/02/20 06/02/20 Range/Units 01:45 01:45 01:45 WBC (4.5-11.0) K/mm3 RBC (3.65-5.03) M/mm3 Hgb (11.8-15.2) gm/dl Hct (35.5-45.6) % MCV (84-94) fl MCH (28-32) pg MCHC (32-34) % RDW (13.2-15.2) % Plt Count (140-440) K/mm3 Lymph % (Auto) (13.4-35.0) % [place] % (Auto) (0.0-7.3) % Eos % (Auto) (0.0-4.3) % Baso % (Auto) (0.0-1.8) % Lymph # (Auto) (1.2-5.4) K/mm3 [place] # (Auto) (0.0-0.8) K/mm3 Eos # (Auto) (0.0-0.4) K/mm3 Baso # (Auto) (0.0-0.1) K/mm3 Seg Neutrophils % (40.0-70.0) % Seg Neutrophils # (1.8-7.7) K/mm3 Sodium 137 (137-145) mmol/L Potassium 4.0 (3.6-5.0) mmol/L Chloride 101.7 (98-107) mmol/L Carbon Dioxide 27 (22-30) mmol/L Anion Gap 12 mmol/L BUN 9 (9-20) mg/dL Creatinine 0.9 (0.8-1.3) mg/dL Estimated GFR > 60 ml/min BUN/Creatinine Ratio 10 % Glucose 102 H (75-100) mg/dL Calcium 9.5 (8.4-10.2) mg/dL Urine Color (Yellow) Urine Turbidity (Clear) Urine pH (5.0-7.0) Ur Specific [place] (1.003-1.030) Urine Protein (Negative) mg/dL Urine Glucose (UA) (Negative) mg/dL Urine Ketones (Negative) mg/dL Urine Blood (Negative) Urine Nitrite (Negative) Urine Bilirubin (Negative) Urine Urobilinogen (<2.0) mg/dL Ur Leukocyte Esterase (Negative) Urine WBC (Auto) (0.0-6.0) /HPF Urine RBC (Auto) (0.0-6.0) /HPF U Epithel Cells (Auto) (0-13.0) /HPF Urine Bacteria (Auto) (Negative) /HPF Urine Mucus /HPF Salicylates < 0.3 L (2.8-20.0) mg/dL Urine Opiates Screen Urine Methadone Screen Acetaminophen 5.0 L (10.0-30.0) ug/mL Ur Barbiturates Screen Ur Phencyclidine Scrn Ur Amphetamines Screen U Benzodiazepines Scrn Urine Cocaine Screen U Marijuana (THC) Screen Drugs of Abuse Note Plasma/Serum Alcohol (0-0.07) % 06/02/20 06/02/20 06/02/20 Range/Units 01:45 01:45 01:57 WBC 5.5 (4.5-11.0) K/mm3 RBC 4.41 (3.65-5.03) M/mm3 Hgb 13.7 (11.8-15.2) gm/dl Hct 39.4 (35.5-45.6) % MCV 89 (84-94) fl MCH 31 (28-32) pg MCHC 35 H (32-34) % RDW 13.0 L (13.2-15.2) % Plt Count 356 (140-440) K/mm3 Lymph % (Auto) 45.4 H (13.4-35.0) % [place] % (Auto) 7.4 H (0.0-7.3) % Eos % (Auto) 3.2 (0.0-4.3) % Baso % (Auto) 0.8 (0.0-1.8) % Lymph # (Auto) 2.5 (1.2-5.4) K/mm3 [place] # (Auto) 0.4 (0.0-0.8) K/mm3 Eos # (Auto) 0.2 (0.0-0.4) K/mm3 Baso # (Auto) 0.0 (0.0-0.1) K/mm3 Seg Neutrophils % 43.2 (40.0-70.0) % Seg Neutrophils # 2.4 (1.8-7.7) K/mm3 Sodium (137-145) mmol/L Potassium (3.6-5.0) mmol/L Chloride (98-107) mmol/L Carbon Dioxide (22-30) mmol/L Anion Gap mmol/L BUN (9-20) mg/dL Creatinine (0.8-1.3) mg/dL Estimated GFR ml/min BUN/Creatinine Ratio % Glucose (75-100) mg/dL Calcium (8.4-10.2) mg/dL Urine Color Yellow (Yellow) Urine Turbidity Clear (Clear) Urine pH 5.0 (5.0-7.0) Ur Specific [place] 1.029 (1.003-1.030) Urine Protein <15 mg/dl (Negative) mg/dL Urine Glucose (UA) Neg (Negative) mg/dL Urine Ketones Neg (Negative) mg/dL Urine Blood Neg (Negative) Urine Nitrite Neg (Negative) Urine Bilirubin Neg (Negative) Urine Urobilinogen < 2.0 (<2.0) mg/dL Ur Leukocyte Esterase Neg (Negative) Urine WBC (Auto) 1.0 (0.0-6.0) /HPF Urine RBC (Auto) 0.0 (0.0-6.0) /HPF U Epithel Cells (Auto) < 1.0 (0-13.0) /HPF Urine Bacteria (Auto) 1+ (Negative) /HPF Urine Mucus 2+ /HPF Salicylates (2.8-20.0) mg/dL Urine Opiates Screen Urine Methadone Screen Acetaminophen (10.0-30.0) ug/mL Ur Barbiturates Screen Ur Phencyclidine Scrn Ur Amphetamines Screen U Benzodiazepines Scrn Urine Cocaine Screen U Marijuana (THC) Screen Drugs of Abuse Note Plasma/Serum Alcohol < 0.01 (0-0.07) % 06/02/20 Range/Units 01:57 WBC (4.5-11.0) K/mm3 RBC (3.65-5.03) M/mm3 Hgb (11.8-15.2) gm/dl Hct (35.5-45.6) % MCV (84-94) fl MCH (28-32) pg MCHC (32-34) % RDW (13.2-15.2) % Plt Count (140-440) K/mm3 Lymph % (Auto) (13.4-35.0) % [place] % (Auto) (0.0-7.3) % Eos % (Auto) (0.0-4.3) % Baso % (Auto) (0.0-1.8) % Lymph # (Auto) (1.2-5.4) K/mm3 [place] # (Auto) (0.0-0.8) K/mm3 Eos # (Auto) (0.0-0.4) K/mm3 Baso # (Auto) (0.0-0.1) K/mm3 Seg Neutrophils % (40.0-70.0) % Seg Neutrophils # (1.8-7.7) K/mm3 Sodium (137-145) mmol/L Potassium (3.6-5.0) mmol/L Chloride (98-107) mmol/L Carbon Dioxide (22-30) mmol/L Anion Gap mmol/L BUN (9-20) mg/dL Creatinine (0.8-1.3) mg/dL Estimated GFR ml/min BUN/Creatinine Ratio % Glucose (75-100) mg/dL Calcium (8.4-10.2) mg/dL Urine Color (Yellow) Urine Turbidity (Clear) Urine pH (5.0-7.0) Ur Specific [place] (1.003-1.030) Urine Protein (Negative) mg/dL Urine Glucose (UA) (Negative) mg/dL Urine Ketones (Negative) mg/dL Urine Blood (Negative) Urine Nitrite (Negative) Urine Bilirubin (Negative) Urine Urobilinogen (<2.0) mg/dL Ur Leukocyte Esterase (Negative) Urine WBC (Auto) (0.0-6.0) /HPF Urine RBC (Auto) (0.0-6.0) /HPF U Epithel Cells (Auto) (0-13.0) /HPF Urine Bacteria (Auto) (Negative) /HPF Urine Mucus /HPF Salicylates (2.8-20.0) mg/dL Urine Opiates Screen Presumptive negative Urine Methadone Screen Presumptive negative Acetaminophen (10.0-30.0) ug/mL Ur Barbiturates Screen Presumptive negative Ur Phencyclidine Scrn Presumptive negative Ur Amphetamines Screen Presumptive negative U Benzodiazepines Scrn Presumptive negative Urine Cocaine Screen Presumptive negative U Marijuana (THC) Screen Presumptive positive Drugs of Abuse Note Disclamer Plasma/Serum Alcohol (0-0.07) % - Medical Decision Making This patient presents to the emergency department requesting placement for drug rehabilitation/detox. The patient has a history of schizophrenia and has been noncompliant with his medications. He denies any current auditory or visual hallucinations. He denies any suicidal or homicidal ideations. However, the patient thinks that his lack of treatment for his schizophrenia has led to him have a drug relapse. The patient admits to cocaine and marijuana use, including earlier in the day. He does not appear acutely intoxicated. He is awake, alert, oriented, AAO x3. He is not responding to any internal stimuli. He seems appropriate throughout our conversations and his ED course. He does not appear to require a 1013, ED hold, or inpatient stabilization. Labs have been mostly unremarkable including CBC, metabolic panel, urinalysis, blood alcohol level, and UDS is only positive for marijuana. Vital signs have been reassuring throughout his ED course. The patient does not appear to require medical admission at this time. He has been given multiple outpatient referrals for psychiatry/behavioral health, as well as drug treatment facilities. He has been instructed to return to the emergency department with any worsening of his symptoms, thoughts of harming himself or others, or with any acute distress. Critical Care Time: No Critical care attestation.: If time is entered above; I have spent that time in minutes in the direct care of this critically ill patient, excluding procedure time. ED Disposition Clinical Impression: History of schizophrenia, Marijuana use, Cocaine use Disposition: DC- TO HOME OR SELFCARE Is pt being admited?: No Condition: Stable Instructions: Stimulant Use Disorder-Cocaine, Cannabis Use Disorder, Schizophrenia, Finding Treatment for Addiction Additional Instructions: Please avoid any further marijuana, cocaine, or illicit drug use. I have given you multiple referrals for drug rehabilitation and treatment centers. I have given you multiple referrals for outpatient psychiatric and/or behavioral health facilities. Return to the emergency department with any worsening of your symptoms, thoughts of harming your self or others, or with any acute distress. Referrals: KOBE AGUILAR MD [Primary Care Provider] - 2-3 Days [facility] [Outside] - 2-3 Days [facility] [Provider Group] - 2-3 Days Time of Disposition: 03:06
== END 2020-06-02 03:16 | disposition home or self-care (01) ==
LOC: ED 01:28
DX: F12.90 Cannabis use, unspecified, uncomplicated (principal); F14.90 Cocaine use, unspecified, uncomplicated; F25.9 Schizoaffective disorder, unspecified; J45.909 Unspecified asthma, uncomplicated; F17.200 Nicotine dependence, unspecified, uncomplicated; Z98.890 Other specified postprocedural states; Z79.899 Other long term (current) drug therapy
CPT/HCPCS: 36415; 80048; 80307; 80320; 81001; 85025; 99283; G0480

== ENCOUNTER 2021-09-29 13:56 | Emergency (ER) | payer MEDICARE ==
[2021-09-29] MEDS ORDERED: LORazepam 2 MG/ML VIAL IM PRN (17:11)
[2021-09-29] MEDS ORDERED: HALOPERIDOL LACTATE 5 MG/1 ML INJ IM PRN (17:11)
--- NOTE | 2021-09-29 17:12 | Emergency Department Report ---
ED General Adult HPI - General Chief complaint: Psych Stated complaint: Psychosis Time Seen by Provider: 09/29/21 17:10 Source: patient, RN notes reviewed Mode of arrival: Ambulatory Limitations: No Limitations - History of Present Illness Initial comments: The patient was evaluated in the emergency department for symptoms described in the history of present illness. He/she was evaluated in the context of the global COVID-19 pandemic, which necessitated consideration that the patient might be at risk for infection with the virus that causes COVID-19. Institutional protocols and algorithms that pertain to the evaluation of patients at risk for COVID-19 are in a state of rapid change based on information released by regulatory bodies including the CDC and federal and state organizations. These policies and algorithms were followed during the patient's care in the emergency department. Please note that these policies, procedures and recommendations changed on a rapid basis. This is a 36-year-old gentleman who presents to the department today with a complaint of hallucinations, psychosis, and homicidality. He denies physical pain. He denies cough and urinary symptoms. He is typically maintained on Invega. - Related Data Home Medications Medication Instructions Recorded Confirmed Last Taken Paliperidone Palmitate [Invega 156 mg IM QMONTH 06/15/19 12/19/19 Unknown Sustenna] Previous Rx's Medication Instructions Recorded Last Taken Type Fluticasone [Flonase] 1 spray NS QDAY #1 bottle 09/23/16 Unknown Rx Loratadine (Nf) [Claritin] 10 mg PO DAILY PRN #30 tablet 09/23/16 Unknown Rx Benztropine [Cogentin] 0.5 mg PO BID #60 tablet 06/17/19 Unknown Rx Divalproex [Maddi Donaldson] 500 mg PO BID #60 tablet 12/21/19 Unknown Rx QUEtiapine [SEROquel] 100 mg PO BID #60 tablet 12/21/19 Unknown Rx traZODone [Desyrel] 50 mg PO QHS #30 tablet 12/21/19 Unknown Rx Benztropine [Cogentin] 0.5 mg PO BID #60 tab 02/23/20 Unknown Rx Divalproex [Maddi DONALDSON] 500 mg PO BID #60 tablet 02/23/20 Unknown Rx QUEtiapine [SEROquel] 100 mg PO BID #60 tab 02/23/20 Unknown Rx traZODone [Desyrel] 50 mg PO QHS #30 tab 02/23/20 Unknown Rx Allergies Allergy/AdvReac Type Severity Reaction Status Date / Time No Known Allergies Allergy Verified 12/18/19 18:00 ED Review of Systems ROS: Stated complaint: GENERAL SICKNESS Other details as noted in HPI Constitutional: denies: fever Eyes: denies: eye discharge ENT: denies: epistaxis Respiratory: denies: cough Cardiovascular: denies: chest pain Gastrointestinal: denies: abdominal pain Genitourinary: denies: dysuria Psychiatric: as per HPI, homicidal thoughts ED Past Medical Hx - Past Medical History Hx Psychiatric Treatment: Yes (Schizophrenia) Hx Asthma: Yes - Surgical History Additional Surgical History: Ear surgery as a child - Social History Smoking Status: Current Every Day Smoker Substance Use Type: Alcohol, Cocaine, Marijuana - Medications Home Medications: Home Medications Medication Instructions Recorded Confirmed Last Taken Type Fluticasone [Flonase] 1 spray NS QDAY #1 bottle 09/23/16 12/19/19 Unknown Rx Loratadine (Nf) [Claritin] 10 mg PO DAILY PRN #30 tablet 09/23/16 12/19/19 Unknown Rx Paliperidone Palmitate [Invega 156 mg IM QMONTH 06/15/19 12/19/19 Unknown History Sustenna] Benztropine [Cogentin] 0.5 mg PO BID #60 tablet 06/17/19 12/19/19 Unknown Rx Divalproex [Maddi Donaldson] 500 mg PO BID #60 tablet 12/21/19 Unknown Rx QUEtiapine [SEROquel] 100 mg PO BID #60 tablet 12/21/19 Unknown Rx traZODone [Desyrel] 50 mg PO QHS #30 tablet 12/21/19 Unknown Rx Benztropine [Cogentin] 0.5 mg PO BID #60 tab 02/23/20 Unknown Rx Divalproex [Maddi DONALDSON] 500 mg PO BID #60 tablet 02/23/20 Unknown Rx QUEtiapine [SEROquel] 100 mg PO BID #60 tab 02/23/20 Unknown Rx traZODone [Desyrel] 50 mg PO QHS #30 tab 02/23/20 Unknown Rx ED Physical Exam - General Limitations: No Limitations General appearance: alert, in no apparent distress - Head Head exam: Present: atraumatic, normocephalic - Eye Eye exam: Present: normal appearance, EOMI. Absent: nystagmus - ENT ENT exam: Present: normal exam, normal orophraynx, mucous membranes moist, normal external ear exam - Neck Neck exam: Present: normal inspection, full ROM. Absent: tenderness, meningismus - Respiratory Respiratory exam: Present: normal lung sounds bilaterally. Absent: respiratory distress, wheezes, rales, rhonchi, stridor, decreased breath sounds - Cardiovascular Cardiovascular Exam: Present: regular rate, normal rhythm, normal heart sounds. Absent: bradycardia, tachycardia, irregular rhythm, systolic murmur, diastolic murmur, rubs, gallop - GI/Abdominal GI/Abdominal exam: Present: soft. Absent: distended, tenderness, guarding, rebound, rigid, pulsatile mass - Rectal Rectal exam: Present: deferred - Extremities Exam Extremities exam: Present: normal inspection, full ROM, other (2+ pulses noted in the bilateral upper and lower extremities. There is no palpable cord. negative Homans sign. Muscular compartments are soft. The pelvis is stable.). Absent: pedal edema, calf tenderness - Back Exam Back exam: Present: normal inspection, full ROM. Absent: tenderness, CVA tenderness (R), CVA tenderness (L), paraspinal tenderness, vertebral tenderness - Neurological Exam Neurological exam: Present: alert, oriented X3, normal gait, other (No facial droop. Tongue midline. Extraocular movements intact bilaterally. Facial se nsation intact to light touch in V1, V2, V3 distribution bilaterally. 5 and a 5 strength in 4 extremities. Sensation intact to light touch in 4 extremities.). Absent: motor sensory deficit - Psychiatric Psychiatric exam: Present: flat affect, homicidal ideation - Skin Skin exam: Present: warm, dry, intact, normal color. Absent: rash ED Course Vital Signs 09/29/21 09/29/21 16:12 18:42 Temperature 98.4 F Pulse Rate 80 Respiratory 20 Rate Blood Pressure 108/75 [Right] O2 Sat by Pulse 100 97 Oximetry - Reevaluation(s) Reevaluation #1: 09/29/21 17:59 Differential diagnosis, including but not limited to: Psychosis, medical clearance, medical screening exam Assessment and plan: 36-year-old gentleman presenting as acutely psychotic, with homicidality. He is placed on a 1013. Mental health consultation is requested. Appropriate laboratory studies ordered. Reassess after laboratory studies have resulted. 09/29/21 18:00 Patient denies cough, physical pain, and urinary symptoms. 09/29/21 19:42 Laboratory studies are reviewed and appreciated. They are essentially unremarkable. COVID swab is pending. The emergency room will follow along as the patient provides the sample. At this point in time, this patient does not appear to have an immediate medical contraindication to psychiatric admission, evaluation, consultation and placement. ED Medical Decision Making - Lab Data Result diagrams: 09/29/21 18:34 09/29/21 18:34 Vital Signs 09/29/21 16:12 Temperature 98.4 F Pulse Rate 80 Respiratory 20 Rate Blood Pressure 108/75 [Right] O2 Sat by Pulse 100 Oximetry Lab Results 09/29/21 09/29/21 09/29/21 Range/Units 18:34 18:34 18:34 WBC 6.9 (4.5-11.0) K/mm3 RBC 4.46 (3.65-5.03) M/mm3 Hgb 13.8 (11.8-15.2) gm/dl Hct 40.4 (35.5-45.6) % MCV 91 (84-94) fl MCH 31 (28-32) pg MCHC 34 (32-34) % RDW 13.2 (13.2-15.2) % Plt Count 329 (140-440) K/mm3 Sodium 140 (137-145) mmol/L Potassium 3.9 (3.6-5.0) mmol/L Chloride 103.3 (98-107) mmol/L Carbon Dioxide 26 (22-30) mmol/L Anion Gap 15 mmol/L BUN 10 (9-20) mg/dL Creatinine 1.0 (0.8-1.3) mg/dL Estimated GFR > 60 ml/min BUN/Creatinine Ratio 10 % Glucose 77 (75-100) mg/dL Calcium 9.7 (8.4-10.2) mg/dL Magnesium 2.20 (1.7-2.3) mg/dL Total Bilirubin 0.30 (0.1-1.2) mg/dL AST 18 (5-40) units/L ALT 16 (7-56) units/L Alkaline Phosphatase 74 (35-129) units/L Total Creatine Kinase 123 (55-170) units/L Total Protein 6.6 (6.3-8.2) g/dL Albumin 4.5 (3.9-5) g/dL Albumin/Globulin Ratio 2.1 % Urine Color (Yellow) Urine Turbidity (Clear) Urine pH (5.0-7.0) Ur Specific [place] (1.003-1.030) Urine Protein (Negative) mg/dL Urine Glucose (UA) (Negative) mg/dL Urine Ketones (Negative) mg/dL Urine Blood (Negative) Urine Nitrite (Negative) Urine Bilirubin (Negative) Urine Urobilinogen (<2.0) mg/dL Ur Leukocyte Esterase (Negative) Urine WBC (Auto) (0.0-6.0) /HPF Urine RBC (Auto) (0.0-6.0) /HPF U Epithel Cells (Auto) (0-13.0) /HPF Urine Bacteria (Auto) (Negative) /HPF Hyaline Casts /LPF Urine Mucus /HPF Salicylates < 0.3 L (2.8-20.0) mg/dL Urine Opiates Screen Urine Methadone Screen Acetaminophen (10.0-30.0) ug/mL Ur Barbiturates Screen Valproic Acid < 2.8 L (50-100) ug/mL Ur Phencyclidine Scrn Ur Amphetamines Screen U Benzodiazepines Scrn Urine Cocaine Screen U Marijuana (THC) Screen Plasma/Serum Alcohol (0-0.07) % 09/29/21 09/29/21 09/29/21 Range/Units 18:34 18:34 18:41 WBC (4.5-11.0) K/mm3 RBC (3.65-5.03) M/mm3 Hgb (11.8-15.2) gm/dl Hct (35.5-45.6) % MCV (84-94) fl MCH (28-32) pg MCHC (32-34) % RDW (13.2-15.2) % Plt Count (140-440) K/mm3 Sodium (137-145) mmol/L Potassium (3.6-5.0) mmol/L Chloride (98-107) mmol/L Carbon Dioxide (22-30) mmol/L Anion Gap mmol/L BUN (9-20) mg/dL Creatinine (0.8-1.3) mg/dL Estimated GFR ml/min BUN/Creatinine Ratio % Glucose (75-100) mg/dL Calcium (8.4-10.2) mg/dL Magnesium (1.7-2.3) mg/dL Total Bilirubin (0.1-1.2) mg/dL AST (5-40) units/L ALT (7-56) units/L Alkaline Phosphatase (35-129) units/L Total Creatine Kinase (55-170) units/L Total Protein (6.3-8.2) g/dL Albumin (3.9-5) g/dL Albumin/Globulin Ratio % Urine Color Yellow (Yellow) Urine Turbidity Clear (Clear) Urine pH 6.0 (5.0-7.0) Ur Specific [place] 1.030 (1.003-1.030) Urine Protein <15 mg/dl (Negative) mg/dL Urine Glucose (UA) Neg (Negative) mg/dL Urine Ketones Tr (Negative) mg/dL Urine Blood Sm (Negative) Urine Nitrite Neg (Negative) Urine Bilirubin Neg (Negative) Urine Urobilinogen 4.0 (<2.0) mg/dL Ur Leukocyte Esterase Neg (Negative) Urine WBC (Auto) 1.0 (0.0-6.0) /HPF Urine RBC (Auto) 1.0 (0.0-6.0) /HPF U Epithel Cells (Auto) 1.0 (0-13.0) /HPF Urine Bacteria (Auto) 1+ (Negative) /HPF Hyaline Casts 2 /LPF Urine Mucus 3+ /HPF Salicylates (2.8-20.0) mg/dL Urine Opiates Screen Urine Methadone Screen Acetaminophen 5.0 L (10.0-30.0) ug/mL Ur Barbiturates Screen Valproic Acid (50-100) ug/mL Ur Phencyclidine Scrn Ur Amphetamines Screen U Benzodiazepines Scrn Urine Cocaine Screen U Marijuana (THC) Screen Plasma/Serum Alcohol < 0.01 (0-0.07) % 09/29/21 Range/Units 18:41 WBC (4.5-11.0) K/mm3 RBC (3.65-5.03) M/mm3 Hgb (11.8-15.2) gm/dl Hct (35.5-45.6) % MCV (84-94) fl MCH (28-32) pg MCHC (32-34) % RDW (13.2-15.2) % Plt Count (140-440) K/mm3 Sodium (137-145) mmol/L Potassium (3.6-5.0) mmol/L Chloride (98-107) mmol/L Carbon Dioxide (22-30) mmol/L Anion Gap mmol/L BUN (9-20) mg/dL Creatinine (0.8-1.3) mg/dL Estimated GFR ml/min BUN/Creatinine Ratio % Glucose (75-100) mg/dL Calcium (8.4-10.2) mg/dL Magnesium (1.7-2.3) mg/dL Total Bilirubin (0.1-1.2) mg/dL AST (5-40) units/L ALT (7-56) units/L Alkaline Phosphatase (35-129) units/L Total Creatine Kinase (55-170) units/L Total Protein (6.3-8.2) g/dL Albumin (3.9-5) g/dL Albumin/Globulin Ratio % Urine Color (Yellow) Urine Turbidity (Clear) Urine pH (5.0-7.0) Ur Specific [place] (1.003-1.030) Urine Protein (Negative) mg/dL Urine Glucose (UA) (Negative) mg/dL Urine Ketones (Negative) mg/dL Urine Blood (Negative) Urine Nitrite (Negative) Urine Bilirubin (Negative) Urine Urobilinogen (<2.0) mg/dL Ur Leukocyte Esterase (Negative) Urine WBC (Auto) (0.0-6.0) /HPF Urine RBC (Auto) (0.0-6.0) /HPF U Epithel Cells (Auto) (0-13.0) /HPF Urine Bacteria (Auto) (Negative) /HPF Hyaline Casts /LPF Urine Mucus /HPF Salicylates (2.8-20.0) mg/dL Urine Opiates Screen Presumptive negative Urine Methadone Screen Presumptive negative Acetaminophen (10.0-30.0) ug/mL Ur Barbiturates Screen Presumptive negative Valproic Acid (50-100) ug/mL Ur Phencyclidine Scrn Presumptive negative Ur Amphetamines Screen Presumptive negative U Benzodiazepines Scrn Presumptive negative Urine Cocaine Screen Presumptive negative U Marijuana (THC) Screen Presumptive positive Plasma/Serum Alcohol (0-0.07) % Critical care attestation.: If time is entered above; I have spent that time in minutes in the direct care of this critically ill patient, excluding procedure time. ED Disposition Clinical Impression: Psychosis, Medical clearance for psychiatric admission Disposition: [address] [place] [address] Is pt being admited?: No Does the pt Need Aspirin: No Condition: Good Referrals: PRIMARY CARE, [Primary Care Provider] - 3-5 Days
[2021-09-29 19:05] LABS: Hematocrit 40.4 % (35.5-45.6); Hemoglobin 13.8 gm/dl (11.8-15.2); Mean Corpuscular HGB Conc 34 % (32-34); Mean Corpuscular Volume 91 fl (84-94); Platelet Count 329 K/mm3 (140-440); Red Blood Count 4.46 M/mm3 (3.65-5.03); Red Cell Distribution Width 13.2 % (13.2-15.2)
[2021-09-29 19:23] LABS: Bilirubin,Urine NEG (Negative); Blood,Urine SM (Negative); Color,Urine Yellow (Yellow); Protein,Urine <15 mg/dL mg/dL (Negative)
[2021-09-29 19:29] LABS: Alanine Aminotransferase 16 units/L (7-56); Albumin 4.5 g/dL (3.9-5); BUN/Creatinine Ratio 10; Blood Urea Nitrogen 10 mg/dL (9-20); Calcium 9.7 mg/dL (8.4-10.2); Hemolysis Index 25
[2021-09-29 19:31] LABS: Amphetamine Screen,Urine PRESUMPTIVE NEGATIVE; Benzodiazepines Screen,Urine PRESUMPTIVE NEGATIVE; Cannabinoid Screen,Urine PRESUMPTIVE POSITIVE; Cocaine Screen,Urine PRESUMPTIVE NEGATIVE; Methadone Screen,Urine PRESUMPTIVE NEGATIVE; Opiate Screen,Urine PRESUMPTIVE NEGATIVE
[2021-09-29 19:35] LABS: Bacteria,Urine 1+ /HPF (Negative); Hyaline Casts,Urine 2 /LPF; Mucus,Urine 3+ /HPF
--- NOTE | 2021-09-30 11:47 | Consultation ---
History of Present Illness - Reason for Consult Consult date: 09/30/21 Reason for consult: mental health evaluation - History of Present Psychiatric Illness HPI: This is a 36-year-old gentleman who presents to the department today with a complaint of hallucinations, psychosis, and homicidality. He denies physical pain. He denies cough and urinary symptoms. He is typically maintained on Invega. The patient is a 36 year old male with history of schizophrenia and cocaine abuse. He was seen today. The patient is upset stating that there was no " meat " on his breakfast. The patient is not cooperative, refusing to answer questions. PAST PSYCHIATRIC HISTORY PAST MEDICAL HISTORY: none reported Family Psychiatric History: None reported or documented SOCIAL HISTORY REVIEW OF SYSTEMS MENTAL STATUS EXAMINATION Assessment and Plan (1)Schizophrenia Treatment Continue home meds. Start Invega sustenna 234mg IM X1 Start Trazodone 50mg po QHS Sitter: Per primary Medical: Per primary Disposition: Recommend acute inpatient psychiatric treatment. Will follow. Thanks Case staffed with Dr. Hall Medications and Allergies Medications and Allergies Medications and Allergies Allergies Allergy/AdvReac Type Severity Reaction Status Date / Time No Known Allergies Allergy Verified 09/30/21 09:52 Home Medications Medication Instructions Recorded Confirmed Last Taken Type Paliperidone Palmitate [Invega 156 mg IM QMONTH 06/15/19 09/30/21 05/05/21 History Sustenna] Active Meds: Active Medications Haloperidol Lactate (Haloperidol Lactate 5 Mg/1 Ml Inj) 5 mg IM Q6HR PRN PRN Reason: Agitation Lorazepam (Lorazepam 2 Mg/Ml Vial) 2 mg IM Q4HR PRN PRN Reason: Agitation Mental Status Exam - Vital signs Last Vital Signs Temp 97.4 F L 09/30/21 10:13 Pulse 53 L 09/30/21 10:13 Resp 18 09/30/21 10:13 BP 109/70 09/30/21 10:13 Pulse Ox 98 09/30/21 10:13 Results Result Diagrams: 09/29/21 18:34 09/29/21 18:34 Abnormal lab results 09/29/21 09/29/21 Range/Units 18:34 18:34 Salicylates < 0.3 L (2.8-20.0) mg/dL Acetaminophen 5.0 L (10.0-30.0) ug/mL Valproic Acid < 2.8 L (50-100) ug/mL All other labs normal.
[2021-09-30] MEDS ORDERED: PALIPERIDONE PALMITATE 234 MG/1.5 ML SYRINGE IM SCH (12:23)
[2021-09-30 21:01] VITALS: BP 114/72
[2021-09-30] MEDS ORDERED: traZODone 50 MG TAB PO SCH (22:00)
== END 2021-10-01 01:03 ==
LOC: ED 13:56
DX: F29 Unspecified psychosis not due to a substance or known physiological condition (principal); Z13.30 Encounter for screening examination for mental health and behavioral disorders, unspecified; Z20.822 Contact with and (suspected) exposure to COVID-19; F17.200 Nicotine dependence, unspecified, uncomplicated; F10.20 Alcohol dependence, uncomplicated; J45.909 Unspecified asthma, uncomplicated
CPT/HCPCS: 36415; 80053; 80164; 80307; 81001; 82550; 83735; 85027; 96372; 99285; J2426; U0003; 80320; G0480